=== PATIENT | female | born 1985 | race Caucasian/White ===

== ENCOUNTER 2022-06-27 09:05 | Emergency (ER) | payer BC, SELFPAY ==
--- NOTE | ~2022-06-27 | CT_ITS ---
EXAMINATION: CT abdomen pelvis w con DATE: 06/27/2022 10:18 INDICATION: Left upper quadrant and epigastric pain, tenderness, radiating to back TECHNIQUE: Computed tomography (CT) of the abdomen and pelvis was performed with 100 CC Omnipaque 350 intravenous contrast. Automated exposure control and iterative reconstruction technique were employe d. Exam dose: 378.40 mGy-cm total exam DLP. COMPARISON: 12/02/2016 CT abdomen pelvis FINDINGS: The lung bases are clear. Normal heart size. No pericardial or pleural effusion. No hepatic, splenic, pancreatic, and adrenal or renal space-occupying mass lesion is detected. The ga llbladder is present. No bile duct or pancreatic duct dilatation. There is an approximately 2.2 mm nonobstructing right renal calculus and suggestion of a subtle pinpo int adjacent nonobstructing right renal calculus. Pinpoint nonobstructing left renal calculus. No ureteral calculus or hydroureteronephrosis. The urina ry bladder is unremarkable. Status post hysterectomy. Up to approximately 1.7 cm left ovarian cyst is suggested. The right ovary appears to be absent. Normal caliber of the abdominal aorta. No intraperitoneal or retroperitoneal or pelvic mass lesion or adenopathy or ascites. Status post appendectomy. No bowel obstruction, bowel wall thickening, pneumatosis or intraperitoneal free air. Small fat-containing umbilical hernia. Included skeletal structures are unremarkable. IMPRESSION: Minimal bilateral nonobstructive nephrolithiasis No urinary tract calculus or hydroureteronephrosis Status post hysterectomy Status post appendectomy Approximately 1.7 cm left ovarian cyst is suggested Reviewed, dictated and finalized at [facility]. Reviewed, dictated and finalized at [facility]. ER PORTALS TEACHER
--- NOTE | 2022-06-27 09:19 | ED.ABDPAIN ---
HPI - Abdominal Pain General Chief Complaint: Abdominal Pain Stated Complaint: abd pain Time Seen by Provider: 06/27/22 09:12 History of Present Illness HPI narrative: Patient is a 37 year old female with a history of appendicitis s/p appendectomy here for evaluation of LUQ abdominal pain x 4 days. Patient states that the pain is intermittent in nature, worse after eating. Associated with nausea, vomiting, and diarrhea. States she has had 10 episodes of loose stools daily. Denies new or suspicious foods. No sick contacts. Saw her PCP who ordered labs which didn't reveal much per patient. Presented today due to decreased PO and feeling dehydrated. No fevers, chills, cough. Related Data Allergies Allergy/AdvReac Type Severity Reaction Status Date / Time amoxicillin Allergy Unknown Verified 10/27/17 15:26 cefaclor Allergy Unknown Verified 10/27/17 15:25 Penicillins Allergy Unknown Verified 10/27/17 15:25 Review of Systems Review of Systems: Gen.: Denies fevers or chills Eyes: Denies eye pain or visual change ENT: Denies congestion Respiratory: Denies shortness of breath or cough CV: Denies chest pain or palpitations GI: Reports abdominal pain nausea, emesis or diarrhea denies burning, urgency, frequency or hematuria Musculoskeletal: Denies back pain or muscle pain Neuro: Denies numbness, tingling, weakness or focal weakness Skin: Denies rash Except as documented, all other systems reviewed and negative [facility] Family History Family History (Updated 10/27/17 @ 16:51 by DOCTOR UNKNOWN) Father Depression Hypertension Cerebrovascular accident Family history of kidney disease Family history of type 2 diabetes mellitus Other Family history of malignant neoplasm of breast in first degree relative Social History Social History Smoking status: Never smoker Second hand tobacco smoke exposure: No Alcohol intake: current Exam Narrative: APPEARANCE: Well appearing, no pain in distress, well-nourished. Head: Normocephalic and atraumatic. EYES: PERRLA/EOMI, conjunctivae clear NOSE: No nasal drainage EARS: External ear normal in appearance THROAT: Oropharynx is clear. Mucous membranes are moist. NECK: Supple. No adenopathy, no masses. RESPIRATORY: Airway patent, respirations nonlabored. Clear to auscultation bilaterally, no rales, rhonchi, wheezing. CARDIOVASCULAR: Regular rate and rhythm without murmurs, rubs, or gallops. ABDOMINAL: Tender to palpation in left upper quadrant. normoactive bowel sounds. Soft, nontender, nondistended. No rebound tenderness or guarding. MUSCULOSKELETAL: Extremities are warm and well-perfused. Moves all extremities well. No edema. NEURO: Normal speech. No focal neurologic deficits. SKIN: Skin is warm and dry. No rashes. PSYCHIATRIC: Normal affect/mood. Course Vital Signs Vital signs: Vital Signs Temperature 97.7 F 06/27/22 09:21 Pulse Rate 97 06/27/22 09:21 Respiratory Rate 18 06/27/22 09:21 Blood Pressure 136/82 06/27/22 09:21 Pulse Oximetry 97 06/27/22 09:21 Oxygen Delivery Room Air 06/27/22 09:21 Temperature 97.7 F 06/27/22 09:21 Pulse Rate 69 06/27/22 11:52 Respiratory Rate 18 06/27/22 11:52 Blood Pressure 107/75 06/27/22 11:52 Pulse Oximetry 100 06/27/22 11:52 Oxygen Delivery Room Air 06/27/22 09:21 MDM - Abdominal Pain MDM Narrative Medical decision making narrative: 37-year-old female here for evaluation abdominal pain, diarrhea, vomiting over the past several days. Patient is nontoxic-appearing and has normal vital signs. She has some abdominal tenderness in the left upper quadrant but no rebound tenderness or guarding. Basic labs unremarkable, lipase is normal. Slightly hemoconcentrated with a RBC count of 15.4. EKG and troponin are nonischemic. CT abdomen pelvis without acute findings. She likely has gastroenteritis, she was given fluids, Pepcid, nausea medicine and Tylenol in the ED with improvement of her
[2022-06-27 09:21] VITALS: BP 136/82; PULSE 97; RESP 18; TEMP 36.5; O2SAT 97
[2022-06-27] MEDS: SODIUM CHLORIDE 0.9% IV 1,000 ML 999 ML IV CONT (09:36)
[2022-06-27] MEDS: ONDANSETRON INJ 4 MG/2 ML VIAL IV PUSH (09:37)
[2022-06-27] MEDS: FAMOTIDINE 20 MG/2 ML VIAL IV PUSH (09:37)
[2022-06-27 09:41] LABS: Basophils Percent Auto 0.3 % (0.2-1.2); Eosinophils Absolute Auto 0.1 K/mm3 (0-0.3); Eosinophils Percent Auto 0.9 % (0-4.4); Hematocrit 45.9 % (37.0-47.0); Hemoglobin 15.4 g/dL (12.0-15.0); Immature Granulocyte Absolute 0.01 K/mm3 (0.00-0.031); Immature Granulocyte Percent A 0.1 % (0-0.5); Lymphocytes Absolute Auto 1.37 K/mm3 (0.9-3.2); Lymphocytes Percent Auto 19.9 % (18.3-44.2); Mean Corpuscular HGB Conc 33.6 g/dl (32-36); Mean Corpuscular Hemoglobin 28.9 pg (26-34); Mean Corpuscular Volume 86.1 fl (80-100); Mean Platelet Volume 10.6 fl (7.4-10.4); Monocytes Absolute Auto 0.3 K/mm3 (0.1-0.6); Monocytes Percent Auto 4.9 % (2.6-8.5); Neutrophils Absolute Auto 5.1 K/mm3 (1.3-6.7); Neutrophils Percent Auto 73.9 % (45.5-73.1); Platelet Count Result 228 k/mm3 (150-375); Red Blood Count 5.33 M/mm3 (4.2-5.4); Red Cell Distribution Width 12.1 % (11.5-14.5); White Blood Count 6.9 K/mm3 (4.5-10.0)
[2022-06-27 09:42] LABS: Appearance Urine Clear (Clear); Bilirubin Urine Negative (Negative); Blood Urine Negative (Negative); Color Urine Yellow (Yellow); Glucose Urine UA Negative (Negative); Ketones Urine Negative (Negative); Leukocyte Esterase Ur Negative LEU/UL (Negative); Nitrate Urine Negative (Negative); Protein Urine Negative (Negative); Urobilinogen Urine 0.2 mg/dL (<2.0)
[2022-06-27 10:06] LABS: Alanine Aminotransferase 29 U/L (6-35); Albumin Level 4.4 g/dL (3.5-5.1); Alkaline Phosphatase 61 U/L (38-126); Anion Gap 6 mmol/L (8-16); Aspartate Amino Transferase 29 U/L (14-36); Bilirubin,Total 0.6 mg/dL (0.2-1.3); Blood Urea Nitrogen 12 mg/dL (7-17); Calcium 8.7 mg/dL (8.4-10.2); Carbon Dioxide 28 mmol/L (22-30); Chloride 104 mmol/L (98-107); Estimated Glomerular Filt Rate > 60; Glucose 94 mg/dL (65-110); Lipase 206 U/L (23-300); Potassium 3.7 mmol/L (3.4-5.0); Sodium 138 mmol/L (137-145)
--- NOTE | 2022-06-27 10:34 | ECG_ITS ---
Measurements Intervals [place] Rate: 69 P: 31 CO: 145 QRS: 35 QRSD: 103 T: 44 QT: 398 QTc: 427 Interpretive Statements SINUS RHYTHM NORMAL ECG NO PREVIOUS ECG AVAILABLE FOR COMPARISON Electronically Signed On 06-27-2022 11:34:26 TOW MOTOR MECHANIC by Kirt Marquez D.O.
[2022-06-27 10:48] LABS: Add Urine Microscopic? NO
[2022-06-27 11:03] LABS: Troponin I < 0.012 ng/mL (0.000-0.034)
[2022-06-27 11:52] VITALS: BP 107/75; PULSE 69; RESP 18; O2SAT 100
== END 2022-06-27 11:52 | disposition home or self-care (01) ==
PROVIDERS: Emergency Provider Physician Assistant; PCP Nurse Practitioner Family
DX: K52.9 Noninfective gastroenteritis and colitis, unspecified (principal); Z90.710 Acquired absence of both cervix and uterus
CPT/HCPCS: 36415; 74177; 80053; 81003; 83690; 84484; 85025; 93005; 96361; 96365; 96375; 99284; J0131; J2405; J7030; Q9967

== ENCOUNTER 2024-01-18 09:50 | Emergency (ER) | payer BC, SELFPAY ==
--- NOTE | 2024-01-18 09:52 | ED.EYEPROB ---
HPI - Eye Problem General Chief complaint: Eye Problems Stated complaint: RT Redness eye Time Seen by Provider: 01/18/24 10:07 Source: patient, RN notes reviewed and old records reviewed Mode of arrival: ambulatory Limitations: no limitations History of Present Illness HPI Narrative: 38-year-old female presents to the [facility] with complaints right eye redness, irritation, crusting. Denies any pain. Normally wears contacts currently wearing eyeglasses. States symptoms started on Friday and last night became worse. Has had some increased tearing. Denies any trauma. Related Data Allergies Allergy/AdvReac Type Severity Reaction Status Date / Time amoxicillin Allergy Unknown Verified 10/27/17 15:26 cefaclor Allergy Unknown Verified 10/27/17 15:25 Penicillins Allergy Unknown Verified 10/27/17 15:25 Review of Systems Review of Systems: All systems reviewed & are unremarkable except as noted in HPI and below Constitutional: Constitutional: Reports no additional constitutional complaints Eyes: Eyes: Reports as per HPI, Denies change in vision, Reports eye discharge and Reports irritation ENT: Reports system reviewed and no additional complaints, except as documented Cardiovascular: Cardiovascular: Reports no additional cardiovascular complaints, Denies chest pain and Denies dyspnea Respiratory: Respiratory: Reports no additional respiratory complaints, Denies chest congestion, Denies cough and Denies dyspnea Gastrointestinal: Gastrointestinal: Reports no additional gastrointestinal complaints, Denies abdominal pain, Denies nausea and Denies vomiting Musculoskeletal: Musculoskeletal: Reports no additional musculoskeletal complaints Integumentary/Breasts: Skin/Breast: Reports system reviewed and no additional complaints, except as docu Neurologic: Reports system reviewed and no additional complaints, except as documented Psychiatric: Psychiatric: Reports no additional psychiatric complaints Allergic/Immunologic: Allergic/Immunologic: Reports no additional allergic/immunologic complaints [facility] Family History Family History Father Depression Hypertension Cerebrovascular accident Family history of kidney disease Family history of type 2 diabetes mellitus Other Family history of malignant neoplasm of breast in first degree relative Social History Social History Smoking status: Never smoker Second hand tobacco smoke exposure: No Alcohol intake: current Comments At the time of my signature, I reviewed and agree with the nursing past medical, surgical, social, and family history. There is no relevant family history pertinent to the patient complaint. Exam Const: General: cooperative, healthy appearing, comfortable, no acute distress, well developed, alert and well nourished Nutritional Appearance: well nourished Orientation/consciousness: patient oriented x3 Limitations: no limitations HENMT: Head: normal to inspection Ears: hearing grossly normal bilaterally and external ears normal Face/Nose/Sinus: Normal external nose present, Normal nares present, Normal nasal mucous membranes and turbinates present, normal facial exam and face symmetric Face and sinus: normal facial exam and face symmetric Mouth: Yes Normal oral and palatal mucosa present and Yes tongue normal Eyes: General: appearance normal, both eyes and all related structures Alignment and Position: alignment normal Periorbital: periorbital findings normal Conjunctivae: conjunctival abnormality right conjunctival injection localized and discharge other (Clear) Sclera: sclerae normal Pupils: Equal, round and reactive pupils present EOM: EOMs intact bilaterally Neck: Neck: normal visual inspection, full ROM, no lymphadenopathy and no meningeal signs Chest: Chest palpation & inspection: normal inspection of the chest Resp: Effort & I
[2024-01-18 10:04] VITALS: BP 118/80; PULSE 77; RESP 16; TEMP 36.4; O2SAT 100
== END 2024-01-18 10:21 | disposition home or self-care (01) ==
PROVIDERS: Emergency Provider Nurse Practitioner
DX: H10.31 Unspecified acute conjunctivitis, right eye (principal); Z86.16 Personal history of COVID-19
CPT/HCPCS: 99213; G0463

== ENCOUNTER 2024-02-05 11:31 | Emergency (ER) | payer BC, SELFPAY ==
[2024-02-05 12:07] VITALS: BP 109/73; PULSE 65; RESP 16; TEMP 36.3; O2SAT 97
--- NOTE | 2024-02-05 12:07 | ED.URI ---
HPI - URI/Sore Throat General Chief Complaint: Upper Respiratory Infection Stated Complaint: SINUS CONGESTION Time Seen by Provider: 02/05/24 12:07 Source: patient Mode of arrival: ambulatory Limitations: no limitations History of Present Illness HPI Narrative: 38-year-old female presents with complaint of sinus congestion, sinus pressure nasal congestion for approximately 7 weeks. Patient has been treating with [id number] medications with no relief of symptoms. Sinus pressure worse to right side with also right ear pain. Afebrile. All systems reviewed and negative except as noted above. Related Data Allergies Allergy/AdvReac Type Severity Reaction Status Date / Time amoxicillin Allergy Unknown Unknown Verified 01/18/24 19:13 cefaclor Allergy Unknown Unknown Verified 01/18/24 19:13 Penicillins Allergy Unknown Unknown Verified 01/18/24 19:13 Review of Systems Review of Systems: CONSTITUTIONAL: Denies fever, chills, or sweats. EYES: Denies visual changes, redness, or discharge. ENT: Reports rhinorrhea, congestion, sinus pressure, right ear pain. Denies sore throat CARDIOVASCULAR: Denies chest pain, palpitations, or edema. RESPIRATORY: Denies cough or dyspnea. GASTROINTESTINAL: Denies abdominal pain, nausea, vomiting, or diarrhea. GENITOURINARY: Denies dysuria or hematuria. SKIN: Denies rash or itching. MUSCULOSKELETAL: Denies back pain, joint pain, or myalgia. NEUROLOGIC: Denies headache, numbness, or weakness. PSYCHIATRIC: Denies anxiety or depression. All other systems reviewed are negative, except as documented in HPI. [facility], [facility] Family History Family History Father Depression Hypertension Cerebrovascular accident Family history of kidney disease Family history of type 2 diabetes mellitus Other Family history of malignant neoplasm of breast in first degree relative Social History Social History Smoking status: Never smoker Second hand tobacco smoke exposure: No Alcohol intake: current Comments At time of signature, agree with nursing past medical, surgical, social and family history. There is no relevant family history pertinent to the presenting complaint. Exam Narrative: GENERAL: This is a well-nourished, well-developed patient, in no apparent distress. HEAD: normocephalic, atraumatic. EYES: PERRL. Sclera clear/white. Vision is grossly intact. EARS: External ears normal, auditory canals clear and without drainage, fluid to right TM without erythema. Normal left TM. Without perforation. Hearing grossly intact. NOSE: External nose normal, moderate congestion, erythema swelling to bilateral nares, maxillary sinus tenderness on the right. THROAT: Mucous membranes moist, posterior pharynx clear. NECK: Neck supple, non-tender without lymphadenopathy, masses or thyromegaly. CARDIOVASCULAR: Regular rate and rhythm without murmurs, gallops, or rubs. RESPIRATORY: Clear to auscultation. Breath sounds equal bilaterally. No wheezes, rales, or rhonchi. SKIN: warm, Dry, intact with no suspicious lesions or rash, good texture and turgor. NEURO: awake, alert, and oriented to person, place and time. There were no obvious focal neurologic abnormalities. EXTREMITIES: No joint tenderness, effusion, or edema noted. Course Course Level of Care: Express Care Visit Vital Signs Vital signs: Vital Signs Temperature 36.3 C L 02/05/24 12:07 Pulse Rate 65 02/05/24 12:07 Respiratory Rate 16 02/05/24 12:07 Blood Pressure 109/73 02/05/24 12:07 Pulse Oximetry 97 02/05/24 12:07 Temperature 36.3 C L 02/05/24 12:07 Pulse Rate 65 02/05/24 12:07 Respiratory Rate 16 02/05/24 12:07 Blood Pressure 109/73 02/05/24 12:07 Pulse Oximetry 97 02/05/24 12:07 Reviewed MDM - URI/Sore Throat MDM Narrative Medical decision making narrative: Patient is aware of diagnosis, unde
== END 2024-02-05 12:22 | disposition home or self-care (01) ==
PROVIDERS: Emergency Provider Nurse Practitioner Family
DX: J01.90 Acute sinusitis, unspecified (principal); Z86.16 Personal history of COVID-19
CPT/HCPCS: 99213; G0463

== ENCOUNTER 2024-07-08 14:49 | Emergency (ER) | payer BC, SELFPAY ==
--- NOTE | ~2024-07-08 | CT_ITS ---
EXAMINATION: CT brain wo con DATE: 07/08/2024 16:19 INDICATION: Headache. Weakness. TECHNIQUE: Computed tomography (CT) of the head was performed without intravenous contrast. The mA wa s adjusted according to patient size. Iterative reconstruction technique was employed. The dose-lengt h product was 605.33 mGy-cm. COMPARISON: Head CT 09/15/2018 FINDINGS: There is no intracranial hemorrhage, acute infarction, or abnormal intracranial mass lesion . The ventricles are normal in size. There is mild mucosal thickening in the paranasal sinuses. The m astoid air cells are normal. The orbits are normal. IMPRESSION: 1. Normal brain. Reviewed, dictated and finalized at location A. TRIMMER IMPRESSION: 1. Normal brain.
--- NOTE | ~2024-07-08 | XR_ITS ---
EXAMINATION: XR chest 1V DATE: 07/08/2024 16:21 INDICATION: Weakness. TECHNIQUE: A single frontal view of the chest was obtained. COMPARISON: CT abdomen and pelvis 06/27/2022 FINDINGS: There is no pneumonia, pleural effusion, or pneumothorax. The heart size is normal. IMPRESSION: 1. No acute cardiopulmonary disease. Reviewed, dictated and finalized at location A. METER MECHANIC
[2024-07-08 15:03] VITALS: BP 134/74; PULSE 104; RESP 16; TEMP 36.4; O2SAT 100
--- OUTSIDE RECORDS SUMMARY | 2024-07-08 15:25 | XMS_ITS | Clinical Summary ---
Author Organization [facility] Address [address] [place] [id number] Care Team Providers Care Radiology Physician Name Role Phone No, Physician Primary Care Provider [phone] Allergies Active Allergy Reactions Criticality Noted Date Comments Amoxicillin Hives High Reaction: Hives, Cefaclor Hives High Reaction: Hives, Penicillins Hives High Reaction: Hives, Medications ibuprofen (ibuprofen) 200 mg tab/cap Take by mouth every 6 (six) hours as needed for pain Active fluticasone propionate (FLONASE) 50 mcg/actuation nasal spray Administer 2 sprays into each nostril daily as needed for rhinitis 9 Active docusate sodium (COLACE) 100 mg capsuleIndicati ons:constipatio n Take 1 capsule (100 mg total) by mouth 2 (two) times a day as needed for constipation (while taking narcotics) 30 capsule 1 9 Active oxyCODONE (ROXICODONE) 5 mg immediate release tabletIndicatio ns:Pain 1-2 tablets q4-6 hours PRN pain 40 tablet [address] (CYMBALTA) 30 mg capsule TAKE ONE CAPSULE BY MOUTH DAILY 30 capsule [address] (CYMBALTA) 20 mg capsule Take 1 po daily for 1 week then 1 every other day for one week then off 11 capsule 0 Active Active Problems Problem Noted Date Diagnosed Date Instability of left shoulder joint 05/25/2019 Overview (05/25/2019): Added automatically from request for surgery [id number] Ulnar neuropathy of left upper extremity 019 Overview (10/17/2018): Added automatically from request for surgery [id number] Ulnar nerve entrapment 01/03/2015 Hypotension 01/02/2015 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 Pain in shoulder 01/02/2015 Surgical History Surgery Date Site/Laterality Comments UT APPENDECTOMY Appendectomy - (Added by TW Conv) SINUS SURGERY Sinus Surgery - (Added by TW Conv) UT DELIVERY ONLY Section - (Added by TW Conv) UT LIG/TRNSXJ FLP TUBE ABDL/VAG APPR UNI/BI Tubal Ligation - (Added by TW Conv) UT TONSILLECTOMY PRIMARY/SECONDARY <AGE 12 Tonsillectomy - (Added by TW Conv) ARM SURGERY 06/09/1989 - 06/08/1990 r/t fracture HYSTERECTOMY 06/09/2010 - 06/08/2011 FLUORO GUIDED INJECTION SHOULDER LEFT 04/26/2019 Left SHOULDER ARTHROSCOPY Left For labral tear ULNAR NERVE REPAIR Left OTHER SURGICAL HISTORY Guyon Canal release FLUORO GUIDED INJECTION SHOULDER LEFT 02/08/2021 Left Medical History Medical History Date Comments Personal history of other di seases of the circulatory system History of hypotension - (Ad ded by TW Conv) Personal history of other di seases of the female genital tract History of ovarian cyst - (A dded by TW Conv) Fatigue Ear pain, left Drainage from nose Jaw pain Arthritis Neck pain Family History Medical History Relation Name Comments Diabetes type I Father Family histo ry of type 1 diabetes mellitus - (Added by TW Conv) Heart attack Father Heart disease Father Family history of cardiac disorder - (Added by TW Conv) Stroke Father No Known Problems Mother Breast cancer Other grandmother Anesthesia problems Neg Hx Relation Name Status Comments Father Mother Other grandmother Social History Tobacco Use Types Packs/Day Years Used Date Smoking Tobacco: Never Smokeless Tobacco: Never Alcohol Use Standard Drinks/Week Comments Yes 0 (1 standard drink = 0.6 oz pur e alcohol) 1 drink monthly maybe AUDIT-C Answer Date Recorded Frequency of Alcohol Consumption Monthly or less 05/25/2019 Average Number of Drinks Not on file 019 Frequency of Binge Drinking Not on file 05/09 Comments No Sex and Gender Information Value Date Recorded Sex Assigned at Not on file Legal Sex 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 Gender Identity Not on file Sexual Orientation Straight 09/21/2019 3: 08 PM CDT Obstetrics History Last Filed Vital Signs Vital Sign Reading Time Taken Comments Blood Pressure 129/74 02/08/2021 3:44 PM CDT Pulse 71 02/08/2021 3:44 PM CDT Temperature 37.1 ??C (98.8 ??F) 06/07/2019 2:07 PM CS T Respiratory Rate 20 02/08/2021 3:44 PM CDT Oxygen Saturation 99% 06/07/2019 2:55 PM DEMOLITION ENGINEER Inhaled Oxygen Concentration - - Weight 70.3 kg (155 lb) 06/07/2019 9:41 AM DEMOLITION ENGINEER Height 177.8 cm (5' 10 ) 06/07/2019 9:41 AM DEMOLITION ENGINEER Body Mass Index 22.24 06/07/2019 9:41 AM DEMOLITION ENGINEER Plan of Treatment Not on file Goals Goal Patient Goal Type Associated Problems Recent Progress Patient-Stated? Author CCM Chronic Pain Care Plan Chronic Care Management No Eveline Quinn, RN Note: Problem: Chronic Pain Goals: 1. Minimize further functional decline 2. Maximize quality of life 3. Control pain Strategies: - Activity/exercise program recommendation - Conservative stepwise pain medicine strategy with multi-disciplinary approach - Recommend healthy lifestyle strategies and compensatory methods as needed Medical Devices Implanted Type Area General Merchandise Salesperson Device Identifier Shelf Expiration Date Model / Serial / Lot [employer] Ar-1938bc Suturetak Fiberwire Arthrex 3mm 12.7mm Knotless Cruciate Ligament - Sn/A - [id number] Implanted:Qt y: 1 on 06/07/2019 by Cayden Sousa MD at [facility] Other - see comments Left: Shoulder [employer] [id number] 04/08/2021 LOLITA-1938B C / N/A / [id number] Description:[place] [employer] Ar-1938bc Suturetak Fiberwire Arthrex 3mm 12.7mm Knotless Cruciate Ligament - Sn/A - [id number] Implanted:Qt y: 1 on 06/07/2019 by Cayden Sousa MD at [facility] Other - see comments Left: Shoulder [employer] [id number] 11/06/2020 AR-8B C / N/A / [id number] Description:Brought in [place] the [place] [employer] Ar-1938bc Suturetak Fiberwire Arthrex 3mm 12.7mm Knotless Cruciate Ligament - Sn/A - [id number] Implanted:Qt y: 1 on 06/07/2019 by Cayden Sousa MD at [facility] Other - see comments Left: Shoulder [employer] [id number] 04/08/2021 AR-1938B C / N/A / [id number] Description:[place]ought in [place] the [place] Scre[employer] Screw Left: Shoulder Insurance [employer] [place] [employer] [place] [employer] [facility] Care Teams Radiology Physician Relationship Specialty Start Date End Date No, Physician PCP - General 09/12/18
--- OUTSIDE RECORDS SUMMARY | 2024-07-08 15:25 | XMS_ITS | Referral Summary ---
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 Pain in shoulder 01/02/2015 Social History Tobacco Use Types Packs/Day Years [...] on file 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 Gender Identity Not on file Sexual Orientation Straight 09/21/2019 3: 08 PM CDT Last Filed Vital Signs Vital Sign Reading Time Taken Comments Blood Pressure 129/74 02/08/2021 3:44 PM CDT Pulse 71 02/08/2021 3:44 PM CDT Temperature 37.1 ??C (98.8 ??F) 06/07/2019 2:07 PM CS T Respiratory Rate 20 02/08/2021 3:44 PM CDT Oxygen Saturation 99% 06/07/2019 2:55 PM CREW TRUCK DRIVER Inhaled Oxygen Concentration - - Weight 70.3 kg (155 lb) 06/07/2019 9:41 AM CREW TRUCK DRIVER Height 177.8 cm (5' 10 ) 06/07/2019 9:41 AM CREW TRUCK DRIVER Body Mass Index 22.24 06/07/2019 9:41 AM CREW TRUCK DRIVER Plan of Treatment Not on file Goals [...] as needed Medical Devices Implanted Type Area Ballroom Dance Instructor Device Identifier Shelf Expiration Date Model / Serial / Lot [employer] Ar-1938bc Suturetak Fiberwire Arthrex 3mm 12.7mm Knotless Cruciate Ligament - Sn/A - [id number] Implanted:Qt y: 1 on 06/07/2019 by Cayden Sousa MD at [facility] Other - see comments Left: Shoulder [employer] [id number] 04/08/2021 AR-1938B C / N/A / [id number] Description:[place]ought in [place] [employer] Ar-1938bc Suturetak Fiberwire Arthrex 3mm 12.7mm Knotless Cruciate Ligament - Sn/A - [id number] Implanted:Qt y: 1 on 06/07/2019 by Cayden Sousa MD at [facility] Other - see comments Left: Shoulder [employer] [id number] 11/06/2020 AR-1938B C / N/A / [id number] Description:Brought in [place] [employer] Ar-1938bc Suturetak Fiberwire Arthrex 3mm 12.7mm Knotless Cruciate Ligament - Sn/A - [id number] Implanted:Qt y: 1 on 06/07/2019 by Cayden Sousa MD at [facility] Other - see comments Left: Shoulder [employer] [id number] 04/08/2021 AR-1938B C / N/A / [id number] Description:[place]ought in [place] Screw Screw Left: Shoulder Insurance [facility] [employer] [place] [employer] [place] Care Teams Extracorporeal Circulation Specialist Relationship Specialty Start Date End Date No, Physician PCP - General 09/12/18
--- OUTSIDE RECORDS SUMMARY | 2024-07-08 15:25 | XMS_ITS | Encounter Summary ---
Author Organization [facility] Address [facility] [place] [place] [address] [place] [address] Care Team Providers Care Sea Shell Gatherer Name Role Phone Adelfo Bailee [facility] Primary Care Provider + Encounter Details Date Type Department Care Team (Late st Contact Info) Description 07/01/2022 [employer] Groupt Message Enc [facility] Medical Group Family & Internal Medicine [facility] [address] [place] [address] [place] [address] [facility] [address] [address] Dicyclomine Update Social History Tobacco Use Types Packs/Day Years Used Date Smoking Tobacco: Never Passive Smoke Exposure: Never Smokeless Tobacco: Never Alcohol Use Standard Drinks/Week Comments Never 0 (1 standard drink = 0.6 oz pur e alcohol) PHQ-2 Answer Date Recorded Patient Health Questionnaire-2 Score 2 05/20/2022 Comments No Sex and Gender Information Value Date Recorded Sex Assigned at Not on file Legal Sex Female 11:34 AM CDT Gender Identity Not on file Sexual Orientation Not on file COVID-19 Exposure Response Date Recorded In the last 10 days, have yo u been in contact with someone who was confirmed or suspected to have Coronavirus/COVID-19? No / Unsure 06/25/2022 3:47 PM AVIONICS SYSTEMS ENGINEER documented as of this encounter Plan of Treatment Not on file documented as of this encounter Visit Diagnoses Not on filedocumented in this encounter Additional Health Concerns Assessment Noted Time PHQ-9 Depression Total Score: 11 022 11:03 AM AVIONICS SYSTEMS ENGINEER documented as of this encounter Care Teams Sea Shell Gatherer Relationship Specialty Start Date End Date Bailee Emanuel FNP- PCP - General Nurse Practitioner Family 05/16/2207/11 documented as of this encounter
--- OUTSIDE RECORDS SUMMARY | 2024-07-08 15:25 | XMS_ITS | Encounter Summary ---
Author Organization [facility] Address [facility] [place] [address] [place] [address] Care Team Providers Care Cushion Former Name Role Phone Bailee Emanuel [facility] Primary Care Provider + Encounter Details Date Type Department Care Team (Late st Contact Info) Description 07/29/2022 Guavust Message Enc [facility] Medical Group Family & Internal Medicine [address] [address] Bailee Emanuel [facility] [address] [place] [address] C. Diff Test Social History Tobacco Use Types Packs/Day Years Used Date Smoking Tobacco: Never Passive Smoke Exposure: Never Smokeless Tobacco: Never Alcohol Use Standard Drinks/Week Comments Never 0 (1 standard drink = 0.6 oz pur e alcohol) PHQ-2 Answer Date Recorded Patient Health Questionnaire-2 Score 0 07/25/2022 Comments No Sex and Gender Information Value Date Recorded Sex Assigned at Not on file Legal Sex Female 11:34 AM CDT Gender Identity Not on file Sexual Orientation Not on file COVID-19 Exposure Response Date Recorded In the last 10 days, have yo u been in contact with someone who was confirmed or suspected to have Coronavirus/COVID-19? No / Unsure 07/25/2022 1:29 PM HOOP BENDER TANK documented as of this encounter Progress Notes * Lola Viramontes RN - 07/30/2022 8:26 AM CST Noted. BENDER TANK documented in this encounter Plan of Treatment Not on file documented as of this encounter Visit Diagnoses Not on filedocumented in this encounter Additional Health Concerns Assessment Noted Time PHQ-9 Depression Total Score: 3 07/25/19 23 2:07 PM HOOP BENDER TANK documented as of this encounter Care Teams Cushion Former Relationship Specialty Start Date End Date Bailee Emanuel FNP- PCP - General Nurse Practitioner Family 05/16/2207/11 documented as of this encounter
--- OUTSIDE RECORDS SUMMARY | 2024-07-08 15:25 | XMS_ITS | Encounter Summary ---
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
--- OUTSIDE RECORDS SUMMARY | 2024-07-08 15:25 | XMS_ITS | Clinical Summary ---
Author Organization [facility] Address [facility] [place] [address] [place] [address] Care Team Providers Care Customs Import Specialist Name Role Phone Unavailable Primary Care Provider Unavailabl e Allergies Active Allergy Reactions Criticality Noted Date Comments Amoxicillin Hives 04/03/2020 Cefaclor Hives High 04/18/2022 Reaction: Hives, Penicillins Hives 04/03/2020 Seasonal Other (see comment) Low 09/25/2022 Itchy eyes, runny nose Medications Ergocalciferol (VITAMIN D OR) Activ e Multiple Vitamin (MULTIVITAMIN ADULT OR) Active ibuprofen (MOTRIN) 200 MG tablet Active pantoprazole EC (PROTONIX) 40 MG tabletIndication s:Acute gastritis without hemorrhage, unspecified gastritis type Take 1 tablet (40 mg total) by mouth daily. 90 tablet 1 12/23/2022 Active butalbital-aceta minophen-caffein e-codeine (FIORICET WITH CODEINE) 28-210-48-30 MG capsuleIndicatio ns:Acute Pain < 7 Day Supply Take 1 capsule by mouth every 4 (four) hours as needed for Headaches. Indications: Acute Pain < 7 Day Supply 30 capsule 12/23/2022 Active Active Problems Problem Noted Date Diagnosed Date Chronic diarrhea 08/13/2022 Overview (08/13/2022): Added automatically from request for surgery [id number] Oropharyngeal dysphagia 08/13/2022 Overview (08/13/2022): Added automatically from request for surgery [id number] Instability of left shoulder joint 05/25/2019 Overview (05/20/2022): Added automatically from request for surgery [id number] Ulnar neuropathy of left upper extremity 019 Overview (05/20/2022): Added automatically from request for surgery [id number] Ulnar nerve entrapment 01/03/2015 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 Pain in shoulder 01/02/2015 Resolved Problems Problem Noted Date Diagnosed Date Resolved Date Hypotension 01/02/2015 01/14/2023 Immunizations Name Administration Dates Next Due Fluzone 6 Months+ Quad (0.5 mL Prefilled Syringe ) 05/20/2022 Family History Medical History Relation Comments Deep vein thrombosis Father Diabetes Father type 1 Hypertension Father Kidney failure Father Stroke Father Cancer Paternal Grandmother breast Relation Status Comments Father Paternal Grandmother Social History Tobacco Use Types Packs/Day Years Used Date Smoking Tobacco: Never Passive Smoke Exposure: Never Smokeless Tobacco: Never Tobacco Cessation:Counseling Given: No Alcohol Use Standard Drinks/Week Comments Yes 0 (1 standard drink = 0.6 oz pur e alcohol) rarely PHQ-2 Answer Date Recorded Patient Health Questionnaire-2 Score 0 08/09/2022 Comments No Sex and Gender Information Value Date Recorded Sex Assigned at Not on file Legal Sex Female 11:34 AM CDT Gender Identity Not on file Sexual Orientation Not on file Last Filed Vital Signs Vital Sign Reading Time Taken Comments Blood Pressure 122/82 12/23/2022 12:59 PM CDT Pulse 78 12/23/2022 12:59 PM CDT Temperature 37.2 ??C (98.9 ??F) 12/23/2022 12:59 PM C DT Respiratory Rate 16 12/23/2022 12:59 PM CDT Oxygen Saturation 100% 12/23/2022 12:59 PM CDT Inhaled Oxygen Concentration - - Weight 79.4 kg (175 lb) 12/23/2022 12:59 PM CDT Height 177.8 cm (5' 10 ) 12/23/2022 12:59 PM CDT Body Mass Index 25.11 12/23/2022 12:59 PM CDT Plan of Treatment Health Maintenance Due Date Last Done Comments Hepatitis C 02/19/2002 DTaP, Tdap and Td Vaccines ( 1 - Tdap) 02/19/2003 Hepatitis B Vaccines (1 of 3 - 19+ 3-dose series) 02/19/2003 Annual Physical 05/20/2023 05/20/2022 PHQ-2 (Physician [place]) 08/10/2023 08/09/2022 COVID-19 Vaccine (3 - 2023-2 5 season) 2024 02/22/2021, 01/18/2021 Mammogram Screening 2024 Influenza Adult (#1) 2024 05/20/2022 PHQ-2 (Physician [place]) 06/09/2024 08/09/2022 HPV Vaccines Aged Out No longer eligi ble based on patient's age to complete this topic Meningococcal B Vaccine Aged Out No l onger eligible based on patient's age to complete this topic Meningococcal Vaccine Aged Out No laz aaron eligible based on patient's age to complete this topic Pneumococcal Vaccine: Pediatrics (0 to 5 Years) and At-Risk Patients (6 to 64 Years) Aged Out No longer eligible b ased on patient's age to complete this topic RSV Immunizations Under 20 Months Aged Out No longer eligible b ased on patient's age to complete this topic Insurance [facility]
--- NOTE | 2024-07-08 15:55 | ED_ITS ---
HPI - Neuro Symptoms/Deficit General Chief Complaint: Neuro Symptoms/Deficit <Emerita Broussard PA-C - Last Filed: 07/09/24 17:33> Stated Complaint: suspected TIA <DELIA Mckeon Last Filed: 07/09/24 17:33> Time Seen by Provider: 07/08/24 15:55 <Emerita Broussard PA-C - Last Filed: 07/09/24 17:33> Focused HPI: This is a 39 year old female that presents to the ER for neurologic symptoms. She remembers walking into the vet. Then she remembers sitting down and trying to talk to the clip riveter. She started to feel very confused. Reports her left side went numb for what felt like a long time. She then developed a headache. She does have history of migraines. Does usually get auras, but does not have numbness/weakness typically. No current weakness/numbness, this has resolved. GENERAL: Well-appearing, well-nourished, and in no acute distress. HEAD: Normocephalic, atraumatic. CHEST: Clear to auscultation. ?No respiratory distress. HEART: Regular rate and rhythm.? NEURO: ?Alert and oriented x3. Normal gait Patient screened in triage and initial orders placed.? ?Additional care and disposition to be based upon?diagnostic testing and treatment. <Emerita Broussard PA-C - Last Filed: 07/09/24 17:33> Source: patient <DELIA Monaco Last Filed: 07/09/24 02:28> Mode of arrival: ambulatory <DELIA Monaco Last Filed: 07/09/24 02:28> Limitations: no limitations <DELIA Monaco Last Filed: 07/09/24 02:28> History of Present Illness HPI Narrative: Agree with triage note above. Patient states that she is currently asymptomatic. She is feeling much better compared to earlier. She does add that her symptoms are associated with a left-sided posterior headache/left-sided muscle pain in the traps region. States that she has had migraines in the past but was unsure if this was a migraine today. Patient is also stating that she had numbness to both the right hand and left upper extremity and left face. < Tima Harris PA-C - Last Filed: 07/09/24 02:28> Related Data Allergies/Adverse Reactions: Allergies Allergy/AdvReac Type Severity Reaction Status Date / Time amoxicillin Allergy Unknown Unknown Verified 07/08/24 14:51 cefaclor Allergy Unknown Unknown Verified 07/08/24 14:51 Penicillins Allergy Unknown Unknown Verified 07/08/24 14:51 <Emerita Broussard PA-C - Last Filed: 07/09/24 17:33> Review of Systems 2 Review of Systems: All systems as dictated in HPI <DELIA Monaco Last Filed: 07/09/24 02:28> PMFSH Family History Family History: Family History Father Depression Hypertension Cerebrovascular accident Family history of kidney disease Family history of type 2 diabetes mellitus Other Family history of malignant neoplasm of breast in first degree relative <Emerita Broussard PA-C - Last Filed: 07/09/24 17:33> Social History Social History: Social History Smoking status: Never smoker Second hand tobacco smoke exposure: No Alcohol intake: current <DELIA Mckeon Last Filed: 07/09/24 17:33> Exam 2 Narrative: GENERAL: Well-appearing, well-nourished, and in no acute distress. HEAD: Normocephalic, atraumatic. EYES: PERRLA and EOMI. ENT: Nares clear, no rhinorrhea or epistaxis. Mucous membranes moist. Oropharynx without tonsillar hypertrophy exudate or other lesions. NECK: Supple. No adenopathy or masses. CHEST: No respiratory distress. Clear to auscultation. No wheezes rales or rhonchi HEART: Regular rate and rhythm. No murmur heard. Normal peripheral pulses. ABDOMEN: Soft, nontender, nondistended, normal active bowel sounds. MSK: Normal range of motion. No edema. SKIN: Warm, dry, no rash. NEURO: Alert and oriented x4. No focal deficits. Cranial nerves 2-12 intact. 5/5 strength and sensation in the upper and lower extremities. No dysarthria. No nystagmus. Normal [id number]. Normal [id number]. No pronator drift bilaterally. PSYCH: Normal mood and affect. <Tima Harris PA-C - Last Filed: 07/09/24 02:28> Course Vital Signs Vital signs: Vital Signs Temperature 97.6 F 07/08/24 15:03 Pulse Rate 104 H 07/08/24 15:03 Respiratory Rate 16 07/08/24 15:03 Blood Pressure 134/74 07/08/24 15:03 Pulse Oximetry 100 07/08/24 15:03 Temperature 97.6 F 07/08/24 15:03 Pulse Rate 74 07/08/24 22:32 Respiratory Rate 17 07/08/24 22:32 Blood Pressure 106/66 07/08/24 22:32 Pulse Oximetry 99 07/08/24 22:32 <Emerita Broussard PA-C - Last Filed: 07/09/24 17:33> Vital Signs Temperature 97.6 F 07/08/24 15:03 Pulse Rate 104 H 07/08/24 15:03 Respiratory Rate 16 07/08/24 15:03 Blood Pressure 134/74 07/08/24 15:03 Pulse Oximetry 100 07/08/24 15:03 Temperature 97.6 F 07/08/24 15:03 Pulse Rate 74 07/08/24 22:32 Respiratory Rate 17 07/08/24 22:32 Blood Pressure 106/66 07/08/24 22:32 Pulse Oximetry 99 07/08/24 22:32 <Tima Harris PA-C - Last Filed: 07/09/24 02:28> MDM - Neuro Symptoms/Deficit MDM Narrative Medical decision making narrative: This is a 39-year-old female who presents to the ED for chief complaint of headache with numbness to the extremities and face. Vitals are normal. Exam is benign. No neurologic deficits on exam Lab work is grossly unremarkable. EKG shows sinus rhythm with no acute ischemia. CT brain without contrast shows no acute findings. Offered further workup with CTA to evaluate the headache and possible neurologic symptoms, however patient is declining. She is feeling completely asymptomatic on my arrival and would like to go home. I did explain that I cannot fully rule out any damage without an MRI in the hospital, however she is understanding of this and still elects to leave. I do feel this is reasonable as her symptoms are not representing a stroke or TIA with bilateral extremity numbness. More likely related to a migraine. She feels improved after Toradol and Benadryl. Patient will be discharged in stable condition. Supportive measures discussed and return precautions given. Patient is understanding and agreeable with plan for discharge with PCP follow-up. <Tima Harris PA-C - Last Filed: 07/09/24 02:28> Lab Data Result diagrams: 07/08/24 16:30 07/08/24 16:30 <Emerita Broussard PA-C - Last Filed: 07/09/24 17:33> Labs: Lab Results 07/08/24 07/08/24 Range/Units 16:30 16:32 WBC 10.0 (4.5-10.0) K/mm3 RBC 5.25 (4.2-5.4) M/mm3 Hgb 15.1 H (12.0-15.0) g/dL Hct 46.2 (37.0-47.0) % MCV 88.0 (80-100) fl MCH 28.8 (26-34) pg MCHC 32.7 (32-36) g/dl RDW 12.2 (11.5-14.5) % Plt Count 251 (150-375) k/mm3 MPV 10.6 H (7.4-10.4) fl Immature Gran % (Auto) 0.2 (0-0.5) % Neut % (Auto) 68.9 (45.5-73.1) % Lymph % (Auto) 24.5 (18.3-44.2) % Scott % (Auto) 5.4 (2.6-8.5) % Eos % (Auto) 0.7 (0-4.4) % Baso % (Auto) 0.3 (0.2-1.2) % Lymph # (Auto) 2.45 (0.9-3.2) K/mm3 Scott # (Auto) 0.5 (0.1-0.6) K/mm3 Eos # (Auto) 0.1 (0-0.3) K/mm3 Baso # (Auto) 0.0 (0.0-0.1) K/mm3 Abs Immat Gran (auto) 0.02 (0.00-0.031) K/mm3 Absolute Neuts (auto) 6.9 H (1.3-6.7) K/mm3 Absolute Nucleated RBC 0.000 (0.0-0.012) K/mm3 Nucleated RBC % 0.0 (0.0-0.2) % PT 13.3 (11.1-14.7) Seconds INR 1.0 APTT 30.5 (22.3-36.8) Seconds Sodium 141 (137-145) mmol/L Potassium 3.4 (3.4-5.0) mmol/L Chloride 102 (98-107) mmol/L Carbon Dioxide 26 (22-30) mmol/L Anion Gap 13 H (4-12) mmol/L BUN 12 (7-17) mg/dL Creatinine 0.66 L (0.7-1.0) mg/dL Estim Creat Clear Calc Not Reportable Estimated GFR > 60 (59 - ) Glucose 120 H (65-110) mg/dL POC Capillary Glucose 142 H (65-105) mg/dl Calcium 9.4 (8.4-10.2) mg/dL Total Bilirubin 0.5 (0.2-1.3) mg/dL AST 29 (14-36) U/L ALT 29 (6-35) U/L Alkaline Phosphatase 65 (38-126) U/L Troponin I < 0.012 (0.000-0.034) ng/mL Total Protein 7.0 (6.3-8.2) g/dL Albumin 4.5 (3.5-5.1) g/dL <Emerita Broussard PA-C - Last Filed: 07/09/24 17:33> Lab Results 07/08/24 07/08/24 Range/Units 16:30 16:32 WBC 10.0 (4.5-10.0) K/mm3 RBC 5.25 (4.2-5.4) M/mm3 Hgb 15.1 H (12.0-15.0) g/dL Hct 46.2 (37.0-47.0) % MCV 88.0 (80-100) fl MCH 28.8 (26-34) pg MCHC 32.7 (32-36) g/dl RDW 12.2 (11.5-14.5) % Plt Count 251 (150-375) k/mm3 MPV 10.6 H (7.4-10.4) fl Immature Gran % (Auto) 0.2 (0-0.5) % Neut % (Auto) 68.9 (45.5-73.1) % Lymph % (Auto) 24.5 (18.3-44.2) % Scott % (Auto) 5.4 (2.6-8.5) % Eos % (Auto) 0.7 (0-4.4) % Baso % (Auto) 0.3 (0.2-1.2) % Lymph # (Auto) 2.45 (0.9-3.2) K/mm3 Scott # (Auto) 0.5 (0.1-0.6) K/mm3 Eos # (Auto) 0.1 (0-0.3) K/mm3 Baso # (Auto) 0.0 (0.0-0.1) K/mm3 Abs Immat Gran (auto) 0.02 (0.00-0.031) K/mm3 Absolute Neuts (auto) 6.9 H (1.3-6.7) K/mm3 Absolute Nucleated RBC 0.000 (0.0-0.012) K/mm3 Nucleated RBC % 0.0 (0.0-0.2) % PT 13.3 (11.1-14.7) Seconds INR 1.0 APTT 30.5 (22.3-36.8) Seconds Sodium 141 (137-145) mmol/L Potassium 3.4 (3.4-5.0) mmol/L Chloride 102 (98-107) mmol/L Carbon Dioxide 26 (22-30) mmol/L Anion Gap 13 H (4-12) mmol/L BUN 12 (7-17) mg/dL Creatinine 0.66 L (0.7-1.0) mg/dL Estim Creat Clear Calc Not Reportable Estimated GFR > 60 (59 - ) Glucose 120 H (65-110) mg/dL POC Capillary Glucose 142 H (65-105) mg/dl Calcium 9.4 (8.4-10.2) mg/dL Total Bilirubin 0.5 (0.2-1.3) mg/dL AST 29 (14-36) U/L ALT 29 (6-35) U/L Alkaline Phosphatase 65 (38-126) U/L Troponin I < 0.012 (0.000-0.034) ng/mL Total Protein 7.0 (6.3-8.2) g/dL Albumin 4.5 (3.5-5.1) g/dL <DELIA Monaco Last Filed: 07/09/24 02:28> Imaging Data Radiologist's impression: ITS Impressions Head CT 07/08/24 16:20 IMPRESSION: 1. Normal brain. Chest X-Ray 07/08/24 16:22 IMPRESSION: 1. No acute cardiopulmonary disease. <DELIA Mckeon Last Filed: 07/09/24 17:33> ECG Data EKG #1: ECG completion date: 07/08/24 <DELIA Monaco Last Filed: 07/09/24 02:28> ECG completion time: 16:30 <Tima Harris PA-C - Last Filed: 07/09/24 02:28> Prior ECG tracings: not available for review <Tima Harris PA-C - Last Filed: 07/09/24 02:28> Interpretation: Sinus rhythm Rate 97 Normal QRS Normal QTC No acute ischemic findings <DELIA Monaco Last Filed: 07/09/24 02:28> Critical Care Time Critical Care Time Critical Care Time: No <Emerita Broussard PA-C - Last Filed: 07/09/24 17:33> Discharge Plan Discharge Clinical Impression: Migraine Qualifiers: Migraine type: unspecified Status migrainosus presence: without status migrainosus Intractability: not intractable Qualified Code(s): G43.909 - Migraine, unspecified, not intractable, without status migrainosus <DELIA Mckeon Last Filed: 07/09/24 17:33> Patient Disposition: Home, Self-Care <DELIA Mckeon Last Filed: 07/09/24 17:33> Condition: Stable <DELIA Mckeon Last Filed: 07/09/24 17:33> Instructions: Antibiotic Form <Emerita Broussard PA-C - Last Filed: 07/09/24 17:33> Additional Instructions: Your exam and imaging today are reassuring overall. This is most likely related to a complex migraine. Please take Tylenol and ibuprofen regularly for headaches at home. Follow-up with PCP on this issue. If you have any new or worsening symptoms please return to the ER for further evaluation. <Emerita Broussard PA-C - Last Filed: 07/09/24 17:33> Patient Language: Estonian <Emerita Broussard PA-C - Last Filed: 07/09/24 17:33> Prescriptions: No Action doxycycline hyclate 100 mg capsule 100 mg PO BID 7 Days Qty: 14 0RF prednisone 20 mg tablet 40 mg PO DAILY 5 Days Qty: 10 0RF <Emerita Broussard PA-C - Last Filed: 07/09/24 17:33> Follow-up/Referrals: PHYSICIAN,CENSUS ENUMERATOR [Non-Staff] - Eligio Patel MD [Physician] - <Emerita Broussard PA-C - Last Filed: 07/09/24 17:33> Time of Disposition: 22:04 <Emerita Broussard PA-C - Last Filed: 07/09/24 17:33> 22:04 <Tima Harris PA-C - Last Filed: 07/09/24 02:28>
--- NOTE | 2024-07-08 15:57 | ECG_ITS ---
Test Date: 2024-07-08 16:30:30 Measurements Intervals [place] Rate: 97 P: 65 HI: 147 QRS: 37 QRSD: 77 T: 48 QT: 341 QTc: 434 Interpretive Statements SINUS RHYTHM LOW QRS VOLTAGE IN PRECORDIAL LEADS [QRS DEFLECTION < 1.0 mV IN CHEST LEADS] MODERATE ST DEPRESSION [0.05+ mV ST DEPRESSION] No previous ECG available for comparison Electronically Signed On 07-09-2024 14:15:01 MATHEMATICS LECTURER by Rowdy Holland M.D.
--- OUTSIDE RECORDS SUMMARY | 2024-07-08 15:59 | XMS_ITS | Referral Summary ---
Author Organization [facility] Address [facility] [place] [address] Care Team Providers Care [employer] Humanities Teacher Name Role Phone No, Physician Primary Care Provider [phone] Allergies Active Allergy Reactions Criticality Noted Date [...] (05/25/2019): Added automatically from request for surgery [id number] Ulnar neuropathy of left upper extremity 019 Overview (10/17/2018): Added automatically from request for surgery [id number] Ulnar nerve entrapment 01/03/2015 Hypotension 01/02/2015 Brachial [...] on file Legal Sex Female 6:13 AM CERTIFIED TUMOR REGISTRAR Gender Identity Not on file Sexual Orientation Straight 09/21/2019 3: 08 PM CDT Last Filed Vital Signs Vital Sign Reading Time Taken Comments Blood Pressure 129/74 02/08/2021 3:44 PM CDT Pulse 71 02/08/2021 3:44 PM CDT Temperature 37.1 ??C (98.8 ??F) 06/07/2019 2:07 PM CS T Respiratory Rate 20 02/08/2021 3:44 PM CDT Oxygen Saturation 99% 06/07/2019 2:55 PM CERTIFIED TUMOR REGISTRAR Inhaled Oxygen Concentration - - Weight 70.3 kg (155 lb) 06/07/2019 9:41 AM CERTIFIED TUMOR REGISTRAR Height 177.8 cm (5' 10 ) 06/07/2019 9:41 AM CERTIFIED TUMOR REGISTRAR Body Mass Index 22.24 06/07/2019 9:41 AM CERTIFIED TUMOR REGISTRAR Plan of Treatment Not on file Goals [...] as needed Medical Devices Implanted Type Area Axle Inspector Device Identifier Shelf Expiration Date Model / Serial / Lot [employer] Ar-1938bc Suturetak Fiberwire Arthrex 3mm 12.7mm Knotless Cruciate Ligament - Sn/A - [id number] Implanted:Qt y: 1 on 06/07/2019 by Cayden Sousa MD at [facility] Other - see comments Left: Shoulder [employer] [id number] 04/08/2021 AR-1938B C / N/A / [id number] Description:Brought in [place] the [place] [employer] Ar-1938bc Suturetak Fiberwire Arthrex 3mm 12.7mm Knotless Cruciate Ligament - Sn/A - [id number] Implanted:Qt y: 1 on 06/07/2019 by Cayden Sousa MD at [facility] Other - see comments Left: Shoulder [employer] [id number] 11/06/2020 AR-1938B C / N/A / [id number] Description:Brought in from the [place] [employer] Ar-1938bc Suturetak Fiberwire Arthrex 3mm 12.7mm Knotless Cruciate Ligament - Sn/A - [id number] Implanted:Qt y: 1 on 06/07/2019 by Cayden Sousa MD at [facility] Other - see comments Left: Shoulder [employer] [id number] 04/08/2021 AR-1938B C / N/A / [id number] Description:Brought in from the [place] Screw Screw Left: Shoulder Insurance [facility] [place] [facility] [place] Care Teams [employer] Teacher Relationship Specialty Start Date End Date No, Physician PCP - General 09/12/18
--- OUTSIDE RECORDS SUMMARY | 2024-07-08 15:59 | XMS_ITS | Encounter Summary ---
Author Organization [facility] Address [facility] [place] [address] [place] [address] Care Team Providers Care Embroiderer Name Role Phone Adelfo Bailee [facility] Primary Care Provider + Encounter Details Date Type Department Care Team (Late st Contact Info) Description 07/01/2022 PeerSpacet Message Enc [facility] Medical Group Family & Internal Medicine [facility] [address] [place] [address] [place] [phone] [facility] [address] [place] [address] Dicyclomine Update Social History Tobacco [...] Coronavirus/COVID-19? No / Unsure 06/25/2022 3:47 PM HOME APPLIANCE WASHING MACHINE MECHANIC documented as of this encounter Plan of Treatment Not on file documented as of this encounter Visit Diagnoses Not on filedocumented in this encounter Additional Health Concerns Assessment Noted Time PHQ-9 Depression Total Score: 11 022 11:03 AM HOME APPLIANCE WASHING MACHINE MECHANIC documented as of this encounter Care Teams Embroiderer Relationship Specialty Start Date End Date Bailee Emanuel FNP- PCP - General Nurse Practitioner Family 05/16/2207/11 documented as of this encounter
--- OUTSIDE RECORDS SUMMARY | 2024-07-08 15:59 | XMS_ITS | Clinical Summary ---
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 Pain in shoulder 01/02/2015 Surgical History Surgery Date Site/Laterality Comments CA APPENDECTOMY Appendectomy - (Added by TW Conv) SINUS SURGERY Sinus Surgery - (Added by TW Conv) CA DELIVERY ONLY Section - (Added by TW Conv) CA LIG/TRNSXJ FLP TUBE ABDL/VAG APPR UNI/BI Tubal Ligation - (Added by TW Conv) CA TONSILLECTOMY PRIMARY/SECONDARY <AGE 12 Tonsillectomy - (Added [...] on file Legal Sex Female 6:13 AM METER CALIBRATOR Gender Identity Not on file Sexual Orientation Straight 09/21/2019 3: 08 PM CDT Obstetrics History Last Filed Vital Signs Vital Sign Reading Time Taken Comments Blood Pressure 129/74 02/08/2021 3:44 PM CDT Pulse 71 02/08/2021 3:44 PM CDT Temperature 37.1 ??C (98.8 ??F) 06/07/2019 2:07 PM CS T Respiratory Rate 20 02/08/2021 3:44 PM CDT Oxygen Saturation 99% 06/07/2019 2:55 PM METER CALIBRATOR Inhaled Oxygen Concentration - - Weight 70.3 kg (155 lb) 06/07/2019 9:41 AM METER CALIBRATOR Height 177.8 cm (5' 10 ) 06/07/2019 9:41 AM METER CALIBRATOR Body Mass Index 22.24 06/07/2019 9:41 AM METER CALIBRATOR Plan of Treatment Not on file Goals [...] as needed Medical Devices Implanted Type Area Dry Cleaning Manager Device Identifier Shelf Expiration Date Model / Serial / Lot [employer] Ar-1938bc Suturetak Fiberwire Arthrex 3mm 12.7mm Knotless Cruciate Ligament - Sn/A - [id number] Implanted:Qt y: 1 on 06/07/2019 by Cayden Sousa MD at [facility] Other - see comments Left: Shoulder [employer] [id number] 04/08/2021 LOLITA-1938B C / N/A / [id number] Description:[place] in [place] the [place] [employer] Ar-1938bc Suturetak Fiberwire Arthrex 3mm 12.7mm Knotless Cruciate Ligament - Sn/A - [id number] Implanted:Qt y: 1 on 06/07/2019 by Cayden Sousa MD at [facility] Other - see comments Left: Shoulder [employer] [id number] 11/06/2020 AR-8B C / N/A / [id number] Description:Brought in from the [place] [employer] Ar-1938bc Suturetak Fiberwire Arthrex 3mm 12.7mm Knotless Cruciate Ligament - Sn/A - [id number] Implanted:Qt y: 1 on 06/07/2019 by Cayden Sousa MD at [facility] Other - see comments Left: Shoulder [employer] [id number] 04/08/2021 AR-1938B C / N/A / [id number] Description:Brought in from the [place] Screw Screw Left: Shoulder Insurance [employer] MD [employer] MD [facility] Care Teams Slat Twister Relationship Specialty Start Date End Date No, Physician PCP - General 09/12/18
--- OUTSIDE RECORDS SUMMARY | 2024-07-08 15:59 | XMS_ITS | Encounter Summary ---
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
--- OUTSIDE RECORDS SUMMARY | 2024-07-08 15:59 | XMS_ITS | Encounter Summary ---
Author Organization [facility] Address [facility] [place] [address] [place] [address] Care Team Providers Care Automobiles Salesperson Name Role Phone Bailee Emanuel [facility] Primary Care Provider + Encounter Details Date Type Department Care Team (Late st Contact Info) Description 07/29/2022 BIME Analyticst Message Enc [facility] Medical Group Family & Internal Medicine [address] [address] Bailee Emanuel [facility] [address] [place] [address] C. Diff Test Social History [...] Coronavirus/COVID-19? No / Unsure 07/25/2022 1:29 PM FIRE MANAGER documented as of this encounter Progress Notes * Lola Viramontes RN - 07/30/2022 8:26 AM CST Noted. MANAGER documented in this encounter Plan of Treatment Not on file documented as of this encounter Visit Diagnoses Not on filedocumented in this encounter Additional Health Concerns Assessment Noted Time PHQ-9 Depression Total Score: 3 07/25/19 23 2:07 PM FIRE MANAGER documented as of this encounter Care Teams Automobiles Salesperson Relationship Specialty Start Date End Date Bailee Emanuel FNP- PCP - General Nurse Practitioner Family 05/16/2207/11 documented as of this encounter
--- OUTSIDE RECORDS SUMMARY | 2024-07-08 15:59 | XMS_ITS | Clinical Summary ---
Author Organization [facility] Address [facility] [place] [address] [place] [address] Care Team Providers Care Unix Architect Name Role Phone Unavailable Primary Care Provider [...] Active butalbital-aceta minophen-caffein e-codeine (FIORICET WITH CODEINE) 54-105-75-30 MG capsuleIndicatio ns:Acute Pain < 7 Day Supply Take 1 capsule by mouth every 4 (four) hours as needed for Headaches. 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
[2024-07-08 16:36] VITALS: BP 120/71; PULSE 95; RESP 16; O2SAT 98
[2024-07-08 16:37] LABS: Glucose Point of Care 142 mg/dl (65-105)
[2024-07-08 16:38] LABS: Basophils Percent Auto 0.3 % (0.2-1.2); Eosinophils Absolute Auto 0.1 K/mm3 (0-0.3); Eosinophils Percent Auto 0.7 % (0-4.4); Hematocrit 46.2 % (37.0-47.0); Hemoglobin 15.1 g/dL (12.0-15.0); Immature Granulocyte Absolute 0.02 K/mm3 (0.00-0.031); Immature Granulocyte Percent A 0.2 % (0-0.5); Lymphocytes Absolute Auto 2.45 K/mm3 (0.9-3.2); Lymphocytes Percent Auto 24.5 % (18.3-44.2); Mean Corpuscular HGB Conc 32.7 g/dl (32-36); Mean Corpuscular Hemoglobin 28.8 pg (26-34); Mean Platelet Volume 10.6 fl (7.4-10.4); Monocytes Absolute Auto 0.5 K/mm3 (0.1-0.6); Monocytes Percent Auto 5.4 % (2.6-8.5); Neutrophils Absolute Auto 6.9 K/mm3 (1.3-6.7); Neutrophils Percent Auto 68.9 % (45.5-73.1); Platelet Count Result 251 k/mm3 (150-375); Red Blood Count 5.25 M/mm3 (4.2-5.4); Red Cell Distribution Width 12.2 % (11.5-14.5)
[2024-07-08 16:48] LABS: Alanine Aminotransferase 29 U/L (6-35); Albumin Level 4.5 g/dL (3.5-5.1); Alkaline Phosphatase 65 U/L (38-126); Anion Gap 13 mmol/L (4-12); Aspartate Amino Transferase 29 U/L (14-36); Bilirubin,Total 0.5 mg/dL (0.2-1.3); Blood Urea Nitrogen 12 mg/dL (7-17); Calcium 9.4 mg/dL (8.4-10.2); Carbon Dioxide 26 mmol/L (22-30); Chloride 102 mmol/L (98-107); Estimated Glomerular Filt Rate > 60; Glucose 120 mg/dL (65-110); Potassium 3.4 mmol/L (3.4-5.0); Prothrombin Time 13.3 Seconds (11.1-14.7); Sodium 141 mmol/L (137-145)
[2024-07-08 16:49] LABS: Partial Thromboplastin Time 30.5 Seconds (22.3-36.8)
[2024-07-08 16:59] LABS: Troponin I < 0.012 ng/mL (0.000-0.034)
[2024-07-08 20:44] VITALS: BP 118/67; PULSE 82; RESP 22; O2SAT 100
[2024-07-08 20:47] VITALS: BP 111/72; PULSE 85; RESP 20; O2SAT 99
[2024-07-08] MEDS: KETOROLAC 15 MG/ML VIAL (*BKC) IV PUSH (21:24)
[2024-07-08] MEDS: diphenhydrAMINE HCl INJ 50 MG/ML VIAL 25 MG IV PUSH (21:25)
[2024-07-08 22:32] VITALS: BP 106/66; PULSE 74; RESP 17; O2SAT 99
== END 2024-07-08 22:34 | disposition home or self-care (01) ==
PROVIDERS: Physician Assistant; Emergency Provider Physician Assistant
DX: G43.909 Migraine, unspecified, not intractable, without status migrainosus (principal)
CPT/HCPCS: 36415; 70450; 71045; 80053; 82948; 84484; 85025; 85610; 85730; 93005; 96374; 96375; 99284; J1200; J1885

== ENCOUNTER 2024-08-19 08:17 | Emergency (ER) | payer BC, SELFPAY ==
--- NOTE | 2024-08-19 08:18 | ED_ITS ---
HPI - URI/Sore Throat General Chief Complaint: Ear Stated Complaint: EARACHE/SINUS Time Seen by Provider: 08/19/24 08:18 Source: patient Mode of arrival: ambulatory Limitations: no limitations History of Present Illness HPI Narrative: Patient is a 39-year-old female presents with sinus congestion, sinus pressure, right earache and headache for 10 days. Denies any fever, chills, nausea, vomiting, diarrhea. Takes daily allergy medication and other medication given by her ENT. Chronic sinusitis. Related Data Home Medications ?Medication ?Instructions ?Recorded ?Confirmed ?Last Taken ?Type cholecalciferol (vitamin D3) 50 50 mcg PO DAILY 08/13/24 08/19/24 Unknown History mcg (2,000 unit) capsule medium chain triglycerides 7.7 15 ml PO DAILY 08/13/24 08/19/24 Unknown History kcal/mL oral oil (MCT Oil) multivitamin (Daily Multi-Vitamin 1 tablet PO DAILY 08/13/24 08/19/24 Unknown History tablet) omega-3 360 ny-nul-iao-fish cap PO 08/13/24 08/13/24 Unknown History oil-vitamin D3 12.5 mcg capsule riboflavin (vitamin B2) 25 mg 25 mg PO DAILY 08/13/24 08/19/24 Unknown History tablet turmeric 400 mg capsule mg PO 08/13/24 08/13/24 Unknown History vitamin B complex 1 cap PO DAILY 08/13/24 08/19/24 Unknown History Allergies Allergy/AdvReac Type Severity Reaction Status Date / Time amoxicillin Allergy Unknown Unknown Verified 08/19/24 08:48 cefaclor Allergy Unknown Unknown Verified 08/19/24 08:48 Penicillins Allergy Unknown Unknown Verified 08/19/24 08:48 Review of Systems Review of Systems: All systems reviewed & are unremarkable except as noted in HPI and below Constitutional: Constitutional: Denies chills, Denies fatigue, Denies fever(s), Reports headache(s), Denies malaise and Denies weakness Eyes: Eyes: Denies blurry vision, Denies itchy eyes and Denies loss of vision ENT: Reports otalgia, Reports headache(s), Denies nasal congestion, Reports sinus pain, Reports sinus pressure and Denies sore throat Cardiovascular: Cardiovascular: Denies chest pain, Denies irregular heart rhyt hm and Denies dyspnea Respiratory: Respiratory: Denies cough and Denies dyspnea Gastrointestinal: Gastrointestinal: Denies abdominal pain, Denies diarrhea, Denies nausea and Denies vomiting Musculoskeletal: Musculoskeletal: Denies back pain, Denies myalgias and Denies arthralgias Integumentary/Breasts: Skin/Breast: Denies pruritus and Denies rash Neurologic: Reports headache(s), Denies loss of vision and Denies weakness Psychiatric: Psychiatric: Reports no additional psychiatric complaints Endocrine: Endocrine: Denies fatigue Allergic/Immunologic: Allergic/Immunologic: Denies itchy eyes PMFSH Past Medical History Medical History Stomach ulcer IBS (irritable bowel syndrome) GERD (gastroesophageal reflux disease) Anxiety Surgical History Surgical History History of surgery on arm L nerve surgery and a broken arm History of tonsillectomy H/O shoulder surgery [place] teeth extracted H/O tubal ligation Hx of abdominal hysterectomy R Ovary Removed Hx of dilation and curettage History of endometrial ablation Hx of section History of colposcopy Hx of appendectomy Family History Family History Father Depression Hypertension Cerebrovascular accident Family history of kidney disease Diabetes mellitus Heart disease Mother Depression Cervical cancer Sibling Thyroid disease Grandparent Depression Breast cancer Other Family history of malignant neoplasm of breast in first degree relative Social History Social History Smoking status: Never smoker Second hand tobacco smoke exposure: No Alcohol intake: current Substance use: never Comments At time of signature, agree with nursing past medical, surgical, social and family history. There is no relevant family history pertinent to the presenting complaint. Exam Const: General: cooperative, healthy appearing, comfortable, no acute distress and well nourished Nutritional Appearance: well nourished Orientation/consciousness: patient oriented x3 Limitations: no limitations HENMT: Head: normal to inspection, normocephalic and atraumatic Ears: hearing grossly normal bilaterally, external ears normal, TM's normal bilaterally, EAC's normal and no periauricular adenopathy Face/Nose/Sinus: Normal external nose present, Abnormal mucous membranes and turbinates present erythematous bilateral and diffuse, normal facial exam, face symmetric and Facial tenderness on exam of face and sinuses Face and sinus: normal facial exam and face symmetric Mouth: Yes Normal oral and palatal mucosa present, Yes lip normal, Yes tongue normal, Yes Normal salivary glands and ducts present, Yes oropharynx normal and Yes moist mucous membranes Teeth and gingiva: dentition normal Throat: posterior oropharynx normal, tonsils normal and uvula midline Eyes: General: appearance normal, both eyes and all related structures Alignment and Position: alignment normal and position normal Periorbital: periorbital findings normal Eyelids: eyelids normal Pupils: Equal, round and reactive pupils present Neck: Neck: normal visual inspection, full ROM, no lymphadenopathy and supple Chest: Chest palpation & inspection: normal inspection of the chest and normal palpation of entire chest wall Resp: Effort & Inspection: normal respiratory effort and able to speak in complete sentences Auscultation: clear to auscultation bilaterally, no crackles, no rales, no rhonchi and no wheezes Cardio: Rate: regular rate Rhythm: regular rhythm Heart sounds: S1 normal heart sound present and S2 normal heart sound present GI: Inspection: normal to inspection Skin: General skin exam: normal color and no rashes or lesions noted Neuro: General: patient oriented x3 and moves all extremities Cranial nerves: Yes Equal, round and reactive pupils present Speech: normal speech Gait exam (Neuro): Normal gait present Extrem: General: normal to inspection, full ROM and no edema Psych: Appearance: grossly normal and well kempt Mental Status: mental status grossly normal Speech and movement: Normal speech and movement present Affect: normal affect Attitude: cooperative Thought process: Normal thought process present Course Course Emergency Course: Discharge instructions reviewed with patient, as well as provided in writing per nursing staff. The instructions also include specific and strict return/GO TO THE ER as well as f/u information. All questions have been answered, and the patient deny any further questions with discharge and discharge plan. Portions of this record may have been created with voice recognition software Level of Care: Express Care Visit Vital Signs Vital signs: Vital Signs Temperature 36.5 C 08/19/24 08:42 Pulse Rate 76 08/19/24 08:42 Respiratory Rate 16 08/19/24 08:42 Blood Pressure 110/76 08/19/24 08:42 Pulse Oximetry 100 08/19/24 08:42 Temperature 36.5 C 08/19/24 08:42 Pulse Rate 76 08/19/24 08:42 Respiratory Rate 16 08/19/24 08:42 Blood Pressure 110/76 08/19/24 08:42 Pulse Oximetry 100 08/19/24 08:42 Reviewed MDM - URI/Sore Throat MDM Narrative Medical decision making narrative: Patient has history of chronic sinusitis and sees ENT. Patient has prescription allergy medicine that she takes daily. Tenderness on palpation to sinuses. Will prescribe doxy and steroid. Patient states She cannot tolerate prednisone due to anxiety, discussed Medrol Dosepak. Informed patient of Light sensitivity with doxy. Pt well hydrated appearing, in no respiratory distress, hemodynamically stable. Recommend supportive care. The patient is stable at time of discharge the clinical impression was discussed and the patient was given the opportunity to ask questions, which were addressed as completely as possible given the information available at present. Anticipatory guidance and return to care precautions were discussed and the importance of primary care follow-up was stressed and encouraged. The patient voiced understanding of the plan, in dications to return, and the need for follow-up. Differential diagnosis considered: Bronchitis, Luna virus, strep pharyngitis, allergic rhinitis, upper respiratory tract infection, sinusitis, rhinosinusitis, nasopharyngitis. viral pharyngitis, otitis media, otitis externa, otitis effusion, foreign body, cerumen impaction, viral syndrome, and influenza.? Exam findings show no acute concerns or changes; patient is non-toxic appearing and is in no distress.? Patient is appropriate for outpatient treatment and follow- up.? Medical Records Attestation: I reviewed the patient's medical records. Discharge Plan Discharge Clinical Impression: Sinusitis Qualifiers: Sinusitis location: maxillary Chronicity: acute Recurrence: non-recurrent Qualified Code(s): J01.00 - Acute maxillary sinusitis, unspecified Patient Disposition: Home, Self-Care Condition: Stable Instructions: Sinusitis (ED) Additional Instructions: Take antibiotic as prescribed. Take steroids Per package instructions Other symptomatic treatments include: -Alternate Tylenol and Motrin per package directions for fever or pain: Tylenol 650-1000mg by mouth every 4-6 hours. Do not exceed 4000mg in 24 hours. Advil (Ibuprofen) 600 mg by mouth every 6 hours. Do not exceed 2400mg in 24 hours. 8 AM: Tylenol 11 AM: Ibuprofen 2 PM: Tylenol 5 PM: Ibuprofen 8 PM: Tylenol 11 PM: Ibuprofen 2 AM: Tylenol 5 AM: Ibuprofen -Antihistamine medication such as Benadryl at night and Zyrtec/Claritin/Mayte during the day can help improve symptoms. -Use Flonase twice a day for 5 days then daily to help reduce the inflammation and dry up your sinuses. -You can also use Sudafed or Mucinex. Be sure to drink plenty of water with these medications at least 8 ounces with every dose and it is important to drink 8 to 10 glasses of water per day. Water is a natural decongestant -Eat and drink things that are easy to swallow, like tea or soup, or popsicles. -Oral rinses such as: Salt water gargles and/or may use topical anesthetic (eg. Chloraseptic spray) or lozenges to relieve dryness or throat pain). -Frequent hand washing or hand women's basketball coach is one of the best ways to prevent spread of infection. -Using a vaporizer or humidifier at night will also help thin secretions and help with coughing up phlegm. Call your Primary Care Doctor and make a follow-up appointment in 3 days. If your cough worsens, you develop a fever greater than 103, you develop shaking chills, a fast heartbeat, trouble breathing and/or feel you are are breathing m uch faster than usual, call your Primary Care Doctor or go to the ER. You have been prescribed Doxycycline today.It may make your skin more sensitive to sunlight than normal. Make sure you wear sunscreen at all times when outside while on the medication. Patient Language: Malay Prescriptions: New doxycycline monohydrate 100 mg tablet 100 mg PO BID 10 Days Qty: 20 0RF methylprednisolone [Medrol (Brad)] 4 mg tablets,dose pack See Rx Instructions .ROUTE .COMPLEX Qty: 21 0RF Rx Instructions: orally per package directions No Action turmeric 400 mg capsule PO cholecalciferol (vitamin D3) 50 mcg (2,000 unit) capsule 50 mcg PO DAILY riboflavin (vitamin B2) 25 mg tablet 25 mg PO DAILY mf-1-set-epa-fish oil-vit D3 360 mg- 12.5 mcg capsule PO vitamin B complex Capsule 1 cap PO DAILY MCT Oil 7.7 kcal/mL oil 15 ml PO DAILY multivitamin [Daily Multi-Vitamin] Tablet 1 tablet PO DAILY bupropion HCl [Wellbutrin XL] 150 mg tablet extended release 24 hr 150 mg PO QAM Qty: 30 2RF Follow-up/Referrals: Eligio Patel MD [Physician] - 3 Days Stand Alone Forms: Work/School Release IP Time of Disposition: 09:13
[2024-08-19 08:42] VITALS: BP 110/76; PULSE 76; RESP 16; TEMP 36.5; O2SAT 100
== END 2024-08-19 09:21 | disposition home or self-care (01) ==
PROVIDERS: Emergency Provider Nurse Practitioner Family
DX: J01.00 Acute maxillary sinusitis, unspecified (principal); Z79.899 Other long term (current) drug therapy
CPT/HCPCS: 99213; G0463

== ENCOUNTER 2024-09-17 08:07 | Outpatient (CLI) | payer BC, SELFPAY ==
--- OUTSIDE RECORDS SUMMARY | 2024-09-17 08:13 | XMS_ITS | Clinical Summary ---
Author Organization [facility] Address [address] [place] [address] Care Team Providers Care Tool Lapper Hand Name Role Phone Unavailable Primary Care Provider [...] Active butalbital-aceta minophen-caffein e-codeine (FIORICET WITH CODEINE) 14-678-76-30 MG capsuleIndicatio ns:Acute Pain < 7 Day Supply Take 1 capsule by mouth every 4 (four) hours as needed for Headaches. 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
--- OUTSIDE RECORDS SUMMARY | 2024-09-17 08:13 | XMS_ITS | Encounter Summary ---
Author Organization [facility] Address [address] [place] [address] Care Team Providers Care Plier Worker Name Role Phone Bailee Emanuel [facility] Primary Care Provider + Encounter Details Date Type Department Care Team (Late st Contact Info) Description 07/29/2022 Mithridiont Message Enc [facility] Medical Group Family & Internal Medicine [address] [address] Bailee Emanuel [place] [id number] [place] [address] C. Diff Test Social History [...] No / Unsure 07/25/2022 1:29 PM FIRE SPRINKLER DESIGNER documented as of this encounter Progress Notes * Lola Viramontes RN - 07/30/2022 8:26 AM CST Noted. SPRINKLER DESIGNER documented in this encounter Plan of Treatment Not on file documented as of this encounter Visit Diagnoses Not on filedocumented in this encounter Additional Health Concerns Assessment Noted Time PHQ-9 Depression Total Score: 3 07/25/19 23 2:07 PM FIRE SPRINKLER DESIGNER documented as of this encounter Care Teams Plier Worker Relationship Specialty Start Date End Date Bailee Emanuel FNP- PCP - General Nurse Practitioner Family 05/16/2207/11 documented as of this encounter
--- OUTSIDE RECORDS SUMMARY | 2024-09-17 08:13 | XMS_ITS | Referral Summary ---
Author Organization [facility] Address [facility] [place] [address] Care Team Providers Care Wood Tool Maker Name Role Phone No, Physician Primary Care Provider [phone] Allergies Active Allergy Reactions Criticality Noted Date [...] (05/25/2019): Added automatically from request for surgery [id number] Ulnar neuropathy of left upper extremity 019 Overview (10/17/2018): Added automatically from request for surgery [id number] Ulnar nerve entrapment 01/03/2015 Hypotension 01/02/2015 Brachial [...] on file Legal Sex Female 6:13 AM NUT SIFTER Gender Identity Not on file Sexual Orientation Straight 09/21/2019 3: 08 PM CDT Last Filed Vital Signs Vital Sign Reading Time Taken Comments Blood Pressure 129/74 02/08/2021 3:44 PM CDT Pulse 71 02/08/2021 3:44 PM CDT Temperature 37.1 C (98.8 F) 06/07/2019 2:07 PM NUT SIFTER Respiratory Rate 20 02/08/2021 3:44 PM CDT Oxygen Saturation 99% 06/07/2019 2:55 PM NUT SIFTER Inhaled Oxygen Concentration - - Weight 70.3 kg (155 lb) 06/07/2019 9:41 AM NUT SIFTER Height 177.8 cm (5' 10 ) 06/07/2019 9:41 AM NUT SIFTER Body Mass Index 22.24 06/07/2019 9:41 AM NUT SIFTER Plan of Treatment Not on file Goals [...] as needed Medical Devices Implanted Type Area Electrical Products Sales Engineer Device Identifier Shelf Expiration Date Model / Serial / Lot Ar[employer]rex [employer] Ar-1938bc Suturetak Fiberwire Arthrex 3mm 12.7mm Knotless Cruciate Ligament - Sn/A - [id number] Implanted:Qt y: 1 on 06/07/2019 by Cayden Sousa MD at [facility] Other - see comments Left: Shoulder [employer] [id number] 04/08/2021 AR-1938B C / N/A / [id number] Description:Brought in from the [place] [employer] Ar-1938bc Suturetak Fiberwire Arthrex 3mm 12.7mm Knotless Cruciate Ligament - Sn/A - [id number] Implanted:Qt y: 1 on 06/07/2019 by Cayden Sousa MD at [facility] Other - see comments Left: Shoulder [employer] [id number] 11/06/2020 AR-1938B C / N/A / [id number] Description:Brought in from the [place] [employer] Ar-1938bc Suturetak Fiberwire Arthrex 3mm 12.7mm Knotless Cruciate Ligament - Sn/A - [id number] Implanted:Qt y: 1 on 06/07/2019 by Cayden Sousa MD at [facility] Other - see comments Left: Shoulder [employer] Inc [id number] 04/08/2021 AR-1938B C / N/A / [id number] Description:Brought in from the [place] Screw Screw Left: Shoulder Insurance [facility] [place] Member Subscriber Plan / Payer (Ef fective 2016-Present) Name:Rand Lo Relation to Subscriber:Spouse Name:HIRAL GORDILLO Date of :1982 Payer ID:[id number] (NAIC) Type:BC OTHER Address: [address] [place] [id number] Care Teams Wood Tool Maker Relationship Specialty Start Date End Date No, Physician PCP - General 09/12/18
--- OUTSIDE RECORDS SUMMARY | 2024-09-17 08:13 | XMS_ITS | Clinical Summary ---
Author Organization [facility] Address [address] [place] [address] [place] [address] Care Team Providers Care Switchboard Mechanic Name Role Phone Unavailable Primary Care Provider Unavailabl e Encounters Date Type Department Care Team Description 08/25/2024 External Device Data ST[facility] ABSTRACTION Provider, Abstract 08/18/2024 External Device Data STL ABSTRACTION Provider, Abstract 08/17/2024 External Device Data ST[facility] ABSTRACTION Provider, Abstract 08/14/2024 External Device Data [facility] ABSTRACTION Provider, Abstract 08/13/2024 External Device Data [facility] ABSTRACTION Provider, Abstract 08/11/2024 External Device Data [facility] ABSTRACTION Provider, Abstract 07/28/2024 External Device Data [facility] ABSTRACTION Provider, Abstract 07/20/2024 External Device Data STL ABSTRACTION Provider, Abstract 07/07/2024 External Device Data ST[facility] ABSTRACTION Provider, Abstract 07/01/2024 External Device Data ST[facility] ABSTRACTION Provider, Abstract from Last 3 Months Social History Tobacco Use Types Packs/Day Years Used Date Smoking Tobacco: Never Assessed Comments Unknown Sex and Gender Information Value Date Recorded Sex Assigned at Not on file Legal Sex Female 4:32 PM CDT Gender Identity Not on file Sexual Orientation Not on file Plan of Treatment Health Maintenance Due Date Last Done Comments DTAP/TDAP/TD VACCINES (1 - Tdap) 02/19/2003 HEPATITIS B VACCINES (1 of 3 - 19+ 3-dose series) 02/19/2003 HPV/Cotest (21-29) 02/19/2005 CERVICAL CANCER SCREENING 02/19/2014 HPV/Cotest (30-65) 02/19/2014 PAP SMEAR 02/19/2014 INFLUENZA VACCINE (#1) 2024 BREAST CANCER SCREENING 2024 HPV VACCINES Aged Out No longer eligi ble based on patient's age to complete this topic
--- OUTSIDE RECORDS SUMMARY | 2024-09-17 08:13 | XMS_ITS | Encounter Summary ---
Author Organization [facility] Address [address] [place] [address] Care Team Providers Care Commercial Fisherman Name Role Phone No, Physician Primary Care Provider [phone] Encounter Details Date Type Department Care Team (Late st Contact Info) Description 02/06/2021 Telephone [facility] [address] [place] [id number] Mahad Jones, RT Social History Tobacco Use [...] on file Legal Sex Female 6:13 AM DETENTION OFFICER Gender Identity Not on file Sexual Orientation [...] on filedocumented in this encounter Care Teams Commercial Fisherman Relationship Specialty Start Date End Date No, Physician PCP - General 09/12/18 documented as of this encounter
--- OUTSIDE RECORDS SUMMARY | 2024-09-17 08:13 | XMS_ITS | Encounter Summary ---
Author Organization [facility] Address [address] [place] [address] Care Team Providers Care Real Estate Listing Consultant Name Role Phone SmithalethaBailee [facility] Primary Care Provider + Encounter Details Date Type Department Care Team (Late st Contact Info) Description 07/01/2022 Clean Filtration Technology Message Enc [facility] Medical Group Family & Internal Medicine [facility] [address] [place] [address] [place] [address] [facility] [address] [place] [address] Dicyclomine Update Social History Tobacco [...] Coronavirus/COVID-19? No / Unsure 06/25/2022 3:47 PM BALANCER documented as of this encounter Plan of Treatment Not on file documented as of this encounter Visit Diagnoses Not on filedocumented in this encounter Additional Health Concerns Assessment Noted Time PHQ-9 Depression Total Score: 11 022 11:03 AM BALANCER documented as of this encounter Care Teams Real Estate Listing Consultant Relationship Specialty Start Date End Date Bailee Emanuel FNP- PCP - General Nurse Practitioner Family 05/16/2207/11 documented as of this encounter
--- OUTSIDE RECORDS SUMMARY | 2024-09-17 08:13 | XMS_ITS | Clinical Summary ---
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 Pain in shoulder 01/02/2015 Surgical History Surgery Date Site/Laterality Comments [place] APPENDECTOM[place] Appendectomy - (Added by TW Conv) SINUS SURGERY Sinus Surgery - (Added by TW Conv) [place] DELIVERY ONLY Section - (Added by TW Conv) [place] LIG/TRNSXJ FLP TUBE ABDL/VAG APPR UNI/BI Tubal Ligation - (Added by TW Conv) [place] TONSILLECTOMY PRIMARY/SECONDARY <AGE 12 Tonsillectomy - (Added [...] on file Legal Sex Female 6:13 AM DIPPER CLOCK AND WATCH HANDS Gender Identity Not on file Sexual Orientation Straight 09/21/2019 3: 08 PM CDT Obstetrics History Last Filed Vital Signs Vital Sign Reading Time Taken Comments Blood Pressure 129/74 02/08/2021 3:44 PM CDT Pulse 71 02/08/2021 3:44 PM CDT Temperature 37.1 C (98.8 F) 06/07/2019 2:07 PM DIPPER CLOCK AND WATCH HANDS Respiratory Rate 20 02/08/2021 3:44 PM CDT Oxygen Saturation 99% 06/07/2019 2:55 PM DIPPER CLOCK AND WATCH HANDS Inhaled Oxygen Concentration - - Weight 70.3 kg (155 lb) 06/07/2019 9:41 AM DIPPER CLOCK AND WATCH HANDS Height 177.8 cm (5' 10 ) 06/07/2019 9:41 AM DIPPER CLOCK AND WATCH HANDS Body Mass Index 22.24 06/07/2019 9:41 AM DIPPER CLOCK AND WATCH HANDS Plan of Treatment Not on file Goals Goal Patient Goal Type Associated Problems Recent Progress Patient-Stated? Author CCM Chronic Pain Care Plan Chronic Care Management No Eveline Quinn RN Note: Problem: Chronic Pain Goals: 1. Minimize further functional decline 2. Maximize quality of life 3. Control pain Strategies: - Activity/exercise program recommendation - Conservative stepwise pain medicine strategy with multi-disciplinary approach - Recommend healthy lifestyle strategies and compensatory methods as needed Medical Devices Implanted Type Area Visual Associate Device Identifier Shelf Expiration Date Model / Serial / Lot Ar[employer]rex Inc Ar-1938bc Suturetak Fiberwire Arthrex 3mm 12.7mm Knotless Cruciate Ligament - Sn/A - [id number] Implanted:Qt y: 1 on 06/07/2019 by Cayden Sousa MD at [facility] Other - see comments Left: Shoulder [employer] Inc [id number] 04/08/2021 AR-1938B C / N/A / [id number] Description:Brought in from the [employer] Ar-1938bc Suturetak Fiberwire Arthrex 3mm 12.7mm Knotless Cruciate Ligament - Sn/A - [id number] Implanted:Qt y: 1 on 06/07/2019 by Cayden Sousa MD at [facility] Other - see comments Left: Shoulder [employer] Inc [id number] 11/06/2020 LOLITA-1938B C / N/A / [id number] Description:[place]ought in [place] the [place] [employer] Ar-1938bc Suturetak Fiberwire Arthrex 3mm 12.7mm Knotless Cruciate Ligament - Sn/A - [id number] Implanted:Qt y: 1 on 06/07/2019 by Cayden Sousa MD at [facility] Other - see comments Left: Shoulder [employer] Inc [id number] 04/08/2021 AR-1938B C / N/A / [id number] Description:Brought in from the [place] Screw Screw Left: Shoulder Insurance NeuroTronik MA Neuro[employer]ron[employer] MA [facility] Care Teams Pressed Or Blown Glass Worker Relationship Specialty Start Date End Date No, Physician PCP - General 09/12/18
[2024-09-17 10:33] LABS: Vitamin D 25 Hydroxy 47.7 ng/mL
[2024-09-19 01:34] LABS: FSH 3.7 mIU/mL; Prolactin 9.6 ng/mL
== END 2024-09-17 08:08 | disposition home or self-care (01) ==
LOC: ANHLAB 08:08
PROVIDERS: PCP Nurse Practitioner Obstetrics & Gynecology; Visit Provider Nurse Practitioner Obstetrics & Gynecology
DX: N95.1 Menopausal and female climacteric states (principal)
CPT/HCPCS: 36415; 82306; 83001; 84146; 84443

== ENCOUNTER 2024-10-08 11:25 | Outpatient (CLI) | payer BC, SELFPAY ==
--- NOTE | ~2024-10-08 | MM_ITS ---
EXAMINATION: MM screening dusty BI w martha HISTORY: Screening TECHNIQUE: Craniocaudal and mediolateral oblique 3-D tomosynthesis images were obtained and synthetic 2-D images were generated. CAD analysis was submitted and interpreted. COMPARISON: No prior mammogram is available for comparison at this institution. BREAST PARENCHYMAL COMPOSITION: Not dense: There are scattered areas of fibroglandular density. FINDINGS: There is no evidence of suspicious mass, calcification, or architectural distortion to sugg est malignancy in either breast. There has been no suspicious interval change. IMPRESSION: 1. No mammographic evidence of malignancy. 2. Recommend routine screening mammography in one year. BI-RADS Category 1: Negative Reviewed, dictated and finalized at location A.
== END 2024-10-08 11:26 | disposition home or self-care (01) ==
LOC: MICIMG 11:26
PROVIDERS: PCP Nurse Practitioner Obstetrics & Gynecology; Visit Provider Nurse Practitioner Obstetrics & Gynecology
DX: Z12.31 Encounter for screening mammogram for malignant neoplasm of breast (principal); N95.1 Menopausal and female climacteric states
CPT/HCPCS: 77063; 77067

== ENCOUNTER 2024-12-25 07:29 | Outpatient (CLI) | payer BC, SELFPAY ==
--- NOTE | ~2024-12-25 | MR_ITS ---
MRI of the cervical spine Clinical History: Neck pain Technique: Axial T2-weighted and gradient images, and sagittal T1-weighted, T2-weighted, and STIR katherine ges were acquired. Findings: There is mild reversal of the normal cervical lordosis. No fracture or subluxation seen. No bone marrow signal abnormality seen. No significant disc bulge or herniation seen at any cervical level. There are minimal facet joint deg enerative changes. No spinal canal stenosis or neural foraminal narrowing seen in the cervical spine. No abnormal signal seen in the spinal cord. Paravertebral soft tissues are unremarkable. Impression: Minimal degenerative change, as above. Reviewed, dictated and finalized at location M. Impression: Minimal degenerative change, as above.
--- NOTE | ~2024-12-25 | MR_ITS ---
MRI of the brain Clinical History: Migraine Technique: Axial and sagittal T1-weighted images were acquired. These were followed by axial T2-weigh migel, diffusion weighted, gradient, and FLAIR images. Findings: No abnormal signal seen in the brain parenchyma. No acute infarct, intracranial hemorrhage or mass lesion. Ventricles and subarachnoid spaces are unremarkable. Orbits are unremarkable. Paranasal sinuses and m astoids are clear. Major intrarenal flow voids are intact. Sagittal midline structures are intact. IMPRESSION: Normal exam. Reviewed, dictated and finalized at location M. IMPRESSION: Normal exam.
== END 2024-12-25 07:30 | disposition home or self-care (01) ==
LOC: MICIMG 07:31
PROVIDERS: PCP Nurse Practitioner Gerontology; Visit Provider Nurse Practitioner Gerontology
DX: G43.909 Migraine, unspecified, not intractable, without status migrainosus (principal)
CPT/HCPCS: 70551; 72141

== ENCOUNTER 2025-01-17 11:51 | Emergency (ER) | payer BC, SELFPAY ==
--- NOTE | ~2025-01-17 | XR_ITS ---
XR abdomen/kub 1V 01/17/2025 12:17 Indication: Upper abdominal pain Procedure: KUB Comparison: No prior studies for comparison. Findings: There are bilateral renal stones. Nonobstructive bowel gas pattern. No acute osseous abnorm ality. Impression: 1: Bilateral nephrolithiasis. Reviewed, dictated and finalized at location A. Impression: 1: Bilateral nephrolithiasis.
[2025-01-17 11:56] VITALS: BP 139/89; PULSE 99; RESP 16; TEMP 36.4; O2SAT 100
[2025-01-17 12:24] LABS: EDUAAPPEAR Clear; EDUABILI Negative (Negative); EDUABLOOD Negative (Negative); EDUACOLOR1 Yellow; EDUAGLUCOSE Negative (Negative); EDUAKETONE Negative (Negative); EDUALEUKO Negative (Negative); EDUANITRATE Negative (Negative); EDUAPH 7.5; EDUAPROTEIN 1+ (Negative); EDUASPGRAVITY 1.020; EDUAUROBILI 1.0
--- NOTE | 2025-01-17 12:38 | ED_ITS ---
HPI - Abdominal Pain General Chief Complaint: Abdominal Pain Stated Complaint: left abdominal pain Time Seen by Provider: 01/17/25 12:05 Source: patient Mode of arrival: ambulatory Limitations: no limitations History of Present Illness HPI narrative: Lo is a 39-year-old female patient presenting to the clinic today with complaints of left upper quadrant/left lower quadrant abdominal pain x 12 days. Also reporting some associated nausea without vomiting. Pain is worse approximately 15-30 minutes after eating. Pain is a sharp pain and comes and goes. States the pain radiates into her back. Reporting some urinary frequency without burning or urgency. Last bowel movement was this morning and normal for the patient. No blood in her stool. History of peptic ulcers, kidney stones, and constipation. History of appendectomy. Colonoscopy 2 years ago-patient states it was bad as she had ulcers for gastrointestinal system. No history/diagnosis of ulcerative colitis or Crohn's. Denies any recent weight loss. Related Data Home Medications ?Medication ?Instructions ?Recorded ?Confirmed ?Last Taken ?Type cholecalciferol (vitamin D3) 50 50 mcg PO DAILY 08/13/24 01/17/25 Unknown History mcg (2,000 unit) capsule multivitamin (Daily Multi-Vitamin 1 tablet PO DAILY 08/13/24 01/17/25 Unknown History tablet) omega-3 360 sd-vpg-moy-fish 360 cap PO DAILY 08/13/24 01/17/25 Unknown History oil-vitamin D3 12.5 mcg capsule riboflavin (vitamin B2) 25 mg 25 mg PO DAILY 08/13/24 01/17/25 Unknown History tablet galcanezumab-gnlm 120 mg/mL 120 mg subcut MONTHLY 01/17/25 01/17/25 Unknown History subcutaneous pen injector (Emgality Pen) Allergies Allergy/AdvReac Type Severity Reaction Status Date / Time amoxicillin Allergy Unknown Unknown Verified 01/17/25 12:00 cefaclor Allergy Unknown Unknown Verified 01/17/25 12:00 Penicillins Allergy Unknown Unknown Verified 01/17/25 12:00 Review of Systems Review of Systems: Pertinent positives per HPI. Patient denies any fever, chills, rash, headache, visual changes, dizziness, cough, runny nose, sore throat, shortness of breath, chest pain, palpitations, nausea, vomiting, diarrhea, constipation. PMFSH Past Medical History Medical History Stomach ulcer IBS (irritable bowel syndrome) GERD (gastroesophageal reflux disease) Anxiety Surgical History Surgical History History of surgery on arm L nerve surgery and a broken arm History of tonsillectomy H/O shoulder surgery [place] teeth extracted H/O tubal ligation Hx of abdominal hysterectomy R Ovary Removed Hx of dilation and curettage History of endometrial ablation Hx of section History of colposcopy Hx of appendectomy Family History Family History Father Depression Hypertension Cerebrovascular accident Family history of kidney disease Diabetes mellitus Heart disease Mother Depression Cervical cancer Sibling Thyroid disease Grandparent Depression Breast cancer Other Family history of malignant neoplasm of breast in first degree relative Social History Social History Smoking status: Never smoker Second hand tobacco smoke exposure: No Alcohol intake: current Substance use: never Comments At the time of my signature, I reviewed and agree with the nursing past medical, surgical, social, and family history. There is no relevant family history pertinent to the patient complaint. Exam Narrative: General: Well-developed, well nourished, in no apparent distress. Head: Normocephalic, atraumatic. Cardio: Regular rate and rhythm, s1 and s2 normal, no murmur appreciated. Resp: Clear to auscultation bilaterally, no rhonchi, rales, wheezing or rubs. Abdomen: Soft, pliable, bowel sounds present in all quadrants, right lower q uadrant, left upper quadrant, and left lower quadrant tender to palpation, no organomegly, no CVAT tenderness. Course Course Emergency Course: Portions of this record may have been created with voice recognition software. Level of Care: Express Care Visit Vital Signs Vital signs: Vital Signs Temperature 36.4 C L 01/17/25 11:56 Pulse Rate 99 01/17/25 11:56 Respiratory Rate 16 01/17/25 11:56 Blood Pressure 139/89 01/17/25 11:56 Pulse Oximetry 100 01/17/25 11:56 Oxygen Delivery Room Air 01/17/25 11:56 Temperature 36.4 C L 01/17/25 11:56 Pulse Rate 99 01/17/25 11:56 Respiratory Rate 16 01/17/25 11:56 Blood Pressure 139/89 01/17/25 11:56 Pulse Oximetry 100 01/17/25 11:56 Oxygen Delivery Room Air 01/17/25 11:56 Vital signs reviewed Transfer Transfered to: [facility] Transportation: Other (Private car) Transfer rationale: LUQ/LLQ abdomen pain Accepting physician: Blake MDM - Abdominal Pain MDM Narrative Medical decision making narrative: At the time of visit patient is resting comfortably on the exam table. Patient appears to be nontoxic. Complaints of left upper quadrant/left lower quadrant abdominal pain x 12 days. Also reporting some associated nausea without vomiting. Pain is worse approximately 15-30 minutes after eating. Pain is a sharp pain and comes and goes. States the pain radiates into her back. Reporting some urinary frequency without burning or urgency. Last bowel mov ement was this morning and normal for the patient. No blood in her stool. History of peptic ulcers, kidney stones, and constipation. History of appendectomy. Colonoscopy 2 years ago-patient states it was bad as she had ulcers for gastrointestinal system. No history/diagnosis of ulcerative colitis or Crohn's. Denies any recent weight loss. Urine dip and a KUB x-ray was performed Labs: Urinalysis positive for 1+ protein. No leukocytes, blood, or nitrates. Diagnostics: KUB shows bilateral kidney stones. No sign acute abdomen pathology Plan: Offer to treat patient for peptic ulcer disease as she has a history of gastric ulcers and prescribed Protonix and Carafate, however I cannot rule out other causes of patient's symptoms such as pancreatitis or cholecystitis. Offer to send patient to the emergency room for further evaluation. Patient would like to go to [facility] emergency room. Report was called to Marleny FRIAS for continuity of care she accepts patient for transfer. Differential Diagnosis Differential diagnosis: Likely abdominal pain, calculus of kidney, constipation, diverticulitis, endometriosis, gastroenteritis, pancreatitis, small bowel obstruction and other (GERD, Crohn's, ulcerative colitis, peptic ulcer disease) Lab Data Labs: Lab Results 01/17/25 Range/Units 12:10 POC Urine Color Yellow POC Urine Clarity Clear POC Urine pH 7.5 POC Ur Specif [place] 1.020 POC Urine Protein 1+ (Negative) POC Ur Glucose (UA) Negative (Negative) POC Urine Ketones Negative (Negative) POC Urine Blood Negative (Negative) POC Urine Nitrite Negative (Negative) POC Urine Bilirubin Negative (Negative) POC Urine Urobilinogen 1.0 POC U Leukocyte Esteras Negative (Negative) Imaging Data Radiologist's impression: ITS Impressions Abdomen X-Ray 01/17/25 12:19 Impression: 1: Bilateral nephrolithiasis. Discharge Plan Discharge Clinical Impression: Left upper quadrant abdominal pain Patient Disposition: Acute Care Hospital Condition: Stable Patient Language: Hebrew Prescriptions: No Action Emgality Pen 120 mg/mL pen injector 120 mg SUBCUT MONTHLY cholecalciferol (vitamin D3) 50 mcg (2,000 unit) capsule 50 mcg PO DAILY riboflavin (vitamin B2) 25 mg tablet 25 mg PO DAILY io-1-ode-epa-fish oil-vit D3 360 mg- 12.5 mcg capsule 360 cap PO DAILY multivitamin [Daily Multi-Vitamin] Tablet 1 tablet PO DAILY bupropion HCl [Wellbutrin XL] 150 mg tablet extended release 24 hr 150 mg PO QAM Qty: 90 2RF Follow-up/Referrals: UNKNOWN,DOCTOR [Primary Care Provider] - Time of Disposition: 12:40 Quality NIHSS Nursing Documentation ED NIHSS nursing documentation: reviewed/agree
== END 2025-01-17 12:40 | disposition short-term general hospital (02) ==
PROVIDERS: Emergency Provider Nurse Practitioner Family
DX: R10.12 Left upper quadrant pain (principal); K21.9 Gastro-esophageal reflux disease without esophagitis; F41.9 Anxiety disorder, unspecified
CPT/HCPCS: 74018; 81003; 99213; G0463

== ENCOUNTER 2025-01-17 12:58 | Emergency (ER) | payer BC, SELFPAY ==
--- NOTE | ~2025-01-17 | US_ITS ---
EXAM: ABDOMEN ULTRASOUND HISTORY: upper quadrant pain COMPARISON: Reference is made to a CT examination of the abdomen and pelvis performed approximately 9 0 minutes earlier FINDINGS: LIVER: The liver is increased in echogenicity and borderline increased in size. The portal vein is patent demonstrating phasic flow in the hepatopedal direction. GALLBLADDER: No stones are identified within the gallbladder, which is otherwise unremarkable. No gallbladder wall thickening or pericholecystic fluid. BILE DUCTS: Common bile duct measures 1.5mm. PANCREAS: Limited evaluation of the pancreas secondary to overlying bowel gas IMPRESSION: Limited evaluation of the pancreas secondary to overlying bowel gas Borderline enlargement of a fatty liver. Phasic flow within the portal vein. No stones within the gallbladder Reviewed, dictated and finalized at location A.
--- NOTE | ~2025-01-17 | CT_ITS ---
CLINICAL INDICATION: Left-sided abdominal pain COMPARISON: 06/27/2022. TECHNIQUE: Multiple contiguous axial images of the abdomen and pelvis were performed following the ad ministration of with 100 mL Omnipaque-350 intravenous contrast The dose-length product (DLP) was 433.58 mGy-cm. Automated exposure control and iterative reconstruction technique were employed. FINDINGS/OBSERVATIONS: Visualized lower thorax: The bilateral lung bases are clear. The heart is of normal size, without pericardial effusion. Small hiatal hernia is present. Liver: The liver demonstrates homogeneous enhancement and is borderline enlarged measuring 19 cm in longitud inal dimension. A Elena's lobe is present. Gallbladder and biliary system: The gallbladder is only minimally distended, and otherwise unremarkable. Pancreas: The pancreas enhances homogeneously without ductal dilatation. Spleen: The spleen enhances homogeneously and is not enlarged measuring 8 cm in longitudinal dimension. Kidneys: Redemonstration of a 3 mm nonobstructing calculus within the interpolar region of the left k idney The remainder of the bilateral kidneys otherwise enhance symmetrically without hydronephrosis or nghia tional renal calculi. Adrenal glands: Unremarkable. Gastrointestinal tract: Irregular 12 x 17 mm focus of decreased attenuation along the posterior wall of the distal stomach for which nonemergent follow-up with direct visualization is recommended, as a gastric ulcer may have a similar appearance. Fecal stasis within the rectum and cecum. Infiltration of the mesentery adjacent to the superior mesenteric vein is identified, unchanged from 06/27/2022, a nonspecific finding. Appendix: Surgically absent - staple line along the posterior wall of the cecum. Vasculature: Unremarkable. Lymph nodes: No pathologically enlarged or morphologically suspicious lymph nodes within the retroperitoneum or at the root of the mesentery. Pelvic structures: The bladder is distended, and otherwise unremarkable. The uterus is surgically absent. Involuting cysts within the left ovary measuring 15 and 13 mm, respectively. The right ovary is not visualized. Body wall and musculoskeletal: Small fat-containing umbilical hernia. No significant degenerative disease within the lower thoracic or lumbosacral spine. IMPRESSION: Borderline enlargement of the liver. Nonobstructing left renal calculi Irregular 12 x 17 mm focus of decreased attenuation along the posterior wall of the distal stomach fo r which nonemergent follow-up with direct visualization is recommended. Two small involuting cysts within the left ovary. Reviewed, dictated and finalized at location A. IMPRESSION: Borderline enlargement of the liver. Nonobstructing left renal calculi Irregular 12 x 17 mm focus of decreased attenuation along the posterior wall of the distal stomach for which nonemergent follow-up with direct visualization i s recommended. Two small involuting cysts within the left ovary.
[2025-01-17 13:06] VITALS: BP 132/85; PULSE 98; RESP 16; TEMP 36.6; O2SAT 100
--- OUTSIDE RECORDS SUMMARY | 2025-01-17 13:20 | XMS_ITS | Clinical Summary ---
Author Organization [facility] Address [address] [place] [address] [place] [address] Care Team Providers Care Retail Commission Sales Associate Name Role Phone Unavailable Primary Care Provider Unavailabl e Encounters Date Type Department Care Team Description 01/11/2025 External Device Data STL ABSTRACTION Provider, Abstract 12/22/2024 External Device Data STL ABSTRACTION Provider, Abstract 12/22/2024 External Device Data STL ABSTRACTION Provider, Abstract 11/23/2024 External Device Data STL ABSTRACTION Provider, Abstract 11/09/2024 External Device Data STL ABSTRACTION Provider, Abstract 11/02/2024 External Device Data STL ABSTRACTION Provider, Abstract 10/27/2024 External Device Data STL ABSTRACTION Provider, Abstract 10/26/2024 External Device Data STL ABSTRACTION Provider, Abstract [...] Health Maintenance Due Date Last Done Comments HPV VACCINES (1 - 3-dose series) 02/19/1999 DTAP/TDAP/TD VACCINES (1 - Tdap) 02/19/2003 HEPATITIS B VACCINES (1 of 3 - 19+ 3-dose series) 02/07 HPV/Cotest (21-29) 02/19/2005 CERVICAL CANCER SCREENING 02/19/2014 HPV/Cotest (30-65) 02/19/2014 PAP SMEAR 02/19/2014 BREAST CANCER SCREENING 2024 INFLUENZA VACCINE (#1) 2025
--- OUTSIDE RECORDS SUMMARY | 2025-01-17 13:20 | XMS_ITS | Encounter Summary ---
Author Organization [facility] Address [address] [place] [address] Care Team Providers Care Bakery Associate Name Role Phone Bailee Emanuel [facility] Primary Care Provider + Encounter Details Date Type Department Care Team (Late st Contact Info) Description 07/01/2022 Control Medical Technology Message Enc [facility] Medical Group Family & Internal Medicine [facility] [address] [place] [address] [place] [address] [facility] [address] [place] [address] Dicyclomine Update Social History Tobacco [...] Coronavirus/COVID-19? No / Unsure 06/25/2022 3:47 PM EXTRUSION PRESS ADJUSTER documented as of this encounter Plan of Treatment Not on file documented as of this encounter Visit Diagnoses Not on filedocumented in this encounter Additional Health Concerns Assessment Noted Time PHQ-9 Depression Total Score: 11 022 11:03 AM EXTRUSION PRESS ADJUSTER documented as of this encounter Care Teams Bakery Associate Relationship Specialty Start Date End Date Bailee Emanuel FNP- PCP - General Nurse Practitioner Family 05/16/2207/11 documented as of this encounter
--- OUTSIDE RECORDS SUMMARY | 2025-01-17 13:20 | XMS_ITS | Encounter Summary ---
Author Organization [facility] Healthcare Address [address] [place] [address] Care Team Providers Care Managed Care Director Name Role Phone No, Physician Primary Care Provider [phone] Encounter Details Date Type Department Care Team (Late st Contact Info) Description 02/06/2021 Telephone [facility] [address] [place] [id number] Mahad Jones, RT Social History Tobacco Use [...] on file Legal Sex Female 6:13 AM SQUIRREL MAN Gender Identity Not on file Sexual Orientation [...] on filedocumented in this encounter Care Teams Managed Care Director Relationship Specialty Start Date End Date No, Physician PCP - General 09/12/18 documented as of this encounter
--- OUTSIDE RECORDS SUMMARY | 2025-01-17 13:20 | XMS_ITS | Clinical Summary ---
Author Organization [facility] Address [address] [place] [address] Care Team Providers Care Quality Rep Name Role Phone Unavailable Primary Care Provider [...] Active butalbital-aceta minophen-caffein e-codeine (FIORICET WITH CODEINE) 77-249-25-30 MG capsuleIndicatio ns:Acute Pain < 7 Day Supply Take 1 capsule by mouth every 4 (four) hours as needed for Headaches. Indications: Acute Pain < 7 Day Supply 30 capsule 12/23/2022 Active Active Problems Problem Noted Date Diagnosed Date Chronic diarrhea 08/13/2022 Overview (08/13/2022): Added automatically from request for surgery [id number] Oropharyngeal dysphagia 08/13/2022 Overview (08/13/2022): Added automatically from request for surgery [id number] Instability of left shoulder joint 05/25/2019 Overview (05/20/2022): Added automatically from request for surgery [id number] Ulnar neuropathy of left upper extremity 019 Overview (05/20/2022): Added automatically from request for surgery [id number] Ulnar nerve entrapment 01/03/2015 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 Pain in shoulder 01/02/2015 Resolved Problems Problem Noted Date Diagnosed Date Resolved Date Hypotension 01/02/2015 01/14/2023 Immunizations Immunization Administration Dates Next Due Fluzone 6 Months+ [...] 12:59 PM CDT Height 177.8 cm (5' 10) 12/23/2022 12:59 PM CDT Body Mass Index 25.11 12/23/2022 12:59 PM CDT Plan of Treatment Health Maintenance Due Date Last Done Comments Hepatitis C 02/19/2002 DTaP, Tdap and Td Vaccines ( 1 - Tdap) 02/19/2003 Hepatitis B Vaccines (1 of 3 - 19+ 3-dose series) 02/19/2003 HPV Vaccines (1 - 3-dose SCD M series) 02/19/2011 Annual Physical 05/20/2023 05/20/2022 COVID-19 Vaccine (3 - 2023-2 5 season) 2024 02/22/2021, 01/18/2021 Mammogram Screening 2024 PHQ-2 (Physician [place]) 06/09/2024 Meningococcal B Vaccine Aged Out No l onger eligible based on patient's age to complete this topic Meningococcal Vaccine Aged Out No laz aaron eligible based on patient's age to complete this topic Pneumococcal Vaccine: Pediatrics (0 to 5 Years) and At-Risk Patients (6 to 49 Years) Aged Out No longer eligible b ased on patient's age to complete this topic RSV Immunizations Under 20 Months Aged Out No longer eligible b ased on patient's age to complete this topic Insurance [facility]
--- OUTSIDE RECORDS SUMMARY | 2025-01-17 13:20 | XMS_ITS | Encounter Summary ---
Author Organization [facility] Address [address] [place] [address] Care Team Providers Care Is Technician Name Role Phone Bailee Emanuel [facility] Primary Care Provider + Encounter Details Date Type Department Care Team (Late st Contact Info) Description 07/29/2022 [email or web address] Message Enc [facility] Medical Group Family & Internal Medicine [address] [address] Bailee Emanuel [place] [address] [place] [address] C. Diff Test Social History [...] Coronavirus/COVID-19? No / Unsure 07/25/2022 1:29 PM PREFITTER documented as of this encounter Progress Notes * Lola Viramontes RN - 07/30/2022 8:26 AM CST Noted. ITTER documented in this encounter Plan of Treatment Not on file documented as of this encounter Visit Diagnoses Not on filedocumented in this encounter Additional Health Concerns Assessment Noted Time PHQ-9 Depression Total Score: 3 07/25/19 23 2:07 PM PREFITTER documented as of this encounter Care Teams Is Technician Relationship Specialty Start Date End Date Bailee Emanuel FNP- PCP - General Nurse Practitioner Family 05/16/2207/11 documented as of this encounter
--- OUTSIDE RECORDS SUMMARY | 2025-01-17 13:20 | XMS_ITS | Clinical Summary ---
Author Organization [facility] Address [facility] [place] [address] Care Team Providers Care Frit Coater Name Role Phone No, Physician Primary Care Provider [phone] Allergies Active Allergy Reactions Criticality Noted Date Comments Amoxicillin Hives High Reaction: Hives, Cefaclor Hives High Reaction: Hives, Levonorgestrel-Ethinyl Estrad Other (See comments) Low 09/25/2022 Itchy eyes, runny nose Penicillins Hives High Reaction: Hives, Medications ibuprofen (ibuprofen) 200 mg tab/cap Take by mouth every 6 (six) hours as needed for pain Active fluticasone propionate (FLONASE) 50 mcg/actuation nasal spray Administer 2 sprays into each nostril daily as needed for rhinitis 9 Active docusate sodium (COLACE) 100 mg capsuleIndicat ions:constipat ion Take 1 capsule (100 mg total) by mouth 2 (two) times a day as needed for constipation (while taking narcotics) 30 capsule 1 9 Active oxyCODONE (ROXICODONE) 5 mg immediate release tabletIndicati ons:Pain 1-2 tablets q4-6 hours PRN pain 40 tablet [address] (CYMBALTA) 30 mg capsule TAKE ONE CAPSULE BY MOUTH DAILY 30 capsule [address] (CYMBALTA) 20 mg capsule Take 1 po daily for 1 week then 1 every other day for one week then off 11 capsule 0 Active buPROPion XL (WELLBUTRIN XL) 150 mg 24 hr tablet Take 1 tablet (150 mg total) by mouth every morning 5 Active butalbital-marcie taminophen-caf feine-codeine (FIORICET WITH CODEINE) 91-958-90-30 mg per capsule Take 1 capsule by mouth every 4 (four) hours as needed [address] (PROTONIX) 40 mg EC tablet Take 1 tablet (40 mg total) by mouth daily 3 Active ubrogepant (UBRELVY) 100 mg tablet Take 1 tablet (100 mg total) by mouth once as needed for migraine May repeat dose once in 2 hours if no relief. Do not exceed 2 doses in 24 hours. 10 tablet 5 5 Active galcanezumab-g nlm 120 mg/mL pen injector Inject 120 mg under the skin every 30 (thirty) days 1 mL 5 5 Active galcanezumab-g nlm 120 mg/mL pen injector Inject 240 mg under the skin every 30 (thirty) days 2 mL 5 01/07/20 25 Active Problems Problem Noted Date Diagnosed Date Migraine without status migrainosus, not intract able 12/07/2024 Neck pain 12/07/2024 Instability of left shoulder joint 05/25/2019 Overview (05/25/2019): Added automatically from request for surgery [id number] Ulnar neuropathy of left upper extremity 019 Overview (10/17/2018): Added automatically from request for surgery [id number] Ulnar nerve entrapment 01/03/2015 Hypotension 01/02/2015 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 Pain in shoulder 01/02/2015 Encounters Date Type Department Care Team Description 12/13/2024 Telephone [facility] Neurology [address] [place] [phone] Opal Rajput NP Additional Services Or Orders (MRI ORDER) 12/08/2024 Telephone [facility] Neurology [address] [place] [address] [place] [phone] Opal Rajput NP Prior Auth (Emgality 120 mg) 12/07/2024 8:00 AM CDT Office Visit [facility] Medical [facility] Neurology [address] [place] [phone] Opal Rajput NP Migraine without status migrainosus, not intractable, unspecified migraine type (Primary Dx); Neck pain from Last 3 Months Surgical History Surgery Date Site/Laterality Comments NV APPENDECTOMY Appendectomy - (Added by TW Conv) SINUS SURGERY Sinus Surgery - (Added by TW Conv) NV DELIVERY ONLY Section - (Added by TW Conv) NV LIG/TRNSXJ FLP TUBE ABDL/VAG APPR UNI/BI Tubal Ligation - (Added by TW Conv) NV TONSILLECTOMY PRIMARY/SECONDARY <AGE 12 Tonsillectomy - (Added [...] History of hypotension - (Ad ded by Conv) Personal history of other di seases of the female genital tract History of ovarian cyst - (A dded by Conv) Fatigue Ear pain, left Drainage from nose Jaw pain Arthritis Neck pain Family History Medical History Relation Name Comments Diabetes type I Father Family histo ry of type 1 diabetes mellitus - (Added by Conv) Heart attack Father Heart disease Father [...] on file Legal Sex Female 6:13 AM PET COUNSELOR Gender Identity Not on file Sexual Orientation Straight 09/21/2019 3: 08 PM CDT Obstetrics History Last Filed Vital Signs Vital Sign Reading Time Taken Comments Blood Pressure 106/62 12/07/2024 7:56 AM CDT Pulse 74 12/07/2024 7:56 AM CDT Temperature 37.1 C (98.8 F) 06/07/2019 2:07 PM PET COUNSELOR Respiratory Rate 20 02/08/2021 3:44 PM CDT Oxygen Saturation 99% 06/07/2019 2:55 PM PET COUNSELOR Inhaled Oxygen Concentration - - Weight 82.1 kg (181 lb) 12/07/2024 7:56 AM CDT Height 177.8 cm (5' 10) 12/07/2024 7:56 AM CDT Body Mass Index 25.97 12/07/2024 7:56 AM CDT Plan of Treatment Health Maintenance Due Date Last Done Comments Breast Cancer Screening-Mammogram 1984 Depression Screening 1984 Hepatitis C Screening 1984 DTaP/Tdap/Td Vaccine (1 - Tdap) 02/19/1995 Varicella Vaccines (1 of 2 - 13+ 2-dose series) 02/19/1997 Hepatitis B Screening 02/19/2002 Regular Well Visit/Exam 18-64 02/19/2002 HPV Vaccines (1 - 3-dose SCD M series) 02/19/2011 Covid-19 Vaccine (2 - 2023-2 5 season) 2024 01/18/2021 Influenza Vaccine (#1) 2025 05/20/2022 Pneumococcal vaccine <65 Aged Out No longer eligible based on patient's age to complete this topic Goals Goal Patient Goal Type Associated Problems [...] as needed Medical Devices Implanted Type Area Hemstitching Machine Operator Device Identifier Shelf Expiration Date Model / Serial / Lot [employer] Ar-1938bc Suturetak Fiberwire Arthrex 3mm 12.7mm Knotless Cruciate Ligament - Sn/A - [id number] Implanted:Qt y: 1 on 06/07/2019 by Cayden Suosa MD at [facility] Other - see comments Left: Shoulder [employer] [id number] 04/08/2021 AR-1938B C / N/A / [id number] Description:Brought in from the [place] [employer] Ar-1938bc Suturetak Fiberwire Arthrex 3mm 12.7mm Knotless Cruciate Ligament - Sn/A - [id number] Implanted:Qt y: 1 on 06/07/2019 by Cayden Sousa MD at [facility] Other - see comments Left: Shoulder [employer] [id number] 11/06/2020 AR-1938B C / N/A / [id number] Description:Brought in from the [place] [employer] Ar-1938bc Suturetak Fiberwire Arthrex 3mm 12.7mm Knotless Cruciate Ligament - Sn/A - [id number] Implanted:Qt y: 1 on 06/07/2019 by Cayden Sousa MD at [facility] Other - see comments Left: Shoulder [employer] [id number] 04/08/2021 AR-1938B C / N/A / [id number] Description:Brought in [place] the [place] Screw Screw Left: Shoulder Insurance [facility] fake company [place] Care Teams Frit Coater Relationship Specialty Start Date End Date No, Physician PCP - General 09/12/18
[2025-01-17 13:27] LABS: Hematocrit 45.5 % (37.0-47.0); Hemoglobin 15.0 g/dL (12.0-15.0); Immature Granulocyte Percent A 0.4 % (0-0.5); Lymphocytes Absolute Auto 1.28 K/mm3 (0.9-3.2); Mean Corpuscular HGB Conc 33.0 g/dl (32-36); Mean Corpuscular Hemoglobin 28.3 pg (26-34); Mean Corpuscular Volume 85.8 fl (80-100); Nucleated Red Blood Cells Absolute Auto 0.000 K/mm3 (0.0-0.012); Nucleated Red Blood Cells Perc 0.0 % (0.0-0.2); Platelet Count Result 259 k/mm3 (150-375); Red Blood Count 5.30 M/mm3 (4.2-5.4); White Blood Count 7.0 K/mm3 (4.5-10.0)
[2025-01-17 13:35] LABS: Add Urine Microscopic? YES; Appearance Urine Clear (Clear); Glucose Urine UA Negative (Negative); Leukocyte Esterase Ur Negative LEU/UL (Negative); Nitrate Urine Negative (Negative); Non Pathogenic Casts 0-2; Specific Grav Ur 1.018 (1.001-1.035)
[2025-01-17 13:47] LABS: Alanine Aminotransferase 26 U/L (6-35); Albumin Level 4.4 g/dL (3.5-5.1); Alkaline Phosphatase 67 U/L (38-126); Anion Gap 10 mmol/L (4-12); Aspartate Amino Transferase 29 U/L (14-36); Bilirubin,Total 0.4 mg/dL (0.2-1.3); Blood Urea Nitrogen 13 mg/dL (7-17); Calcium 9.5 mg/dL (8.4-10.2); Carbon Dioxide 24 mmol/L (22-30); Chloride 102 mmol/L (98-107); Estimated CRCL calculation 92 ml/min; Estimated Glomerular Filt Rate > 60; Glucose 107 mg/dL (65-110); Lipase 260 U/L (23-300); Potassium 3.9 mmol/L (3.4-5.0); Sodium 136 mmol/L (137-145); Total Protein 7.4 g/dL (6.3-8.2)
--- OUTSIDE RECORDS SUMMARY | 2025-01-17 14:46 | XMS_ITS | Encounter Summary ---
Author Organization [facility] Healthcare Address [address] [place] [address] Care Team Providers Care Practice Physician Name Role Phone No, Physician Primary Care Provider [phone] Encounter Details Date Type Department Care Team (Late st Contact Info) Description 02/06/2021 Telephone [facility] [address] [place] [id number] Mahad Jones, RT Social History Tobacco Use [...] on file Legal Sex Female 6:13 AM INSPECTOR PAPER PRODUCTS Gender Identity Not on file Sexual Orientation [...] on filedocumented in this encounter Care Teams Practice Physician Relationship Specialty Start Date End Date No, Physician PCP - General 09/12/18 documented as of this encounter
--- OUTSIDE RECORDS SUMMARY | 2025-01-17 14:46 | XMS_ITS | Encounter Summary ---
Author Organization [facility] Address [address] [place] [address] Care Team Providers Care Privacy Specialist Name Role Phone Bailee Emanuel [facility] Primary Care Provider + Encounter Details Date Type Department Care Team (Late st Contact Info) Description 07/01/2022 [employer] Message Enc [facility] Medical Group Family & Internal Medicine [facility] [address] [place] [address] [place] [address] [facility] [address] [place] [address] Dicyclomine Update Social History Tobacco [...] Coronavirus/COVID-19? No / Unsure 06/25/2022 3:47 PM ZIPPER REPAIRER documented as of this encounter Plan of Treatment Not on file documented as of this encounter Visit Diagnoses Not on filedocumented in this encounter Additional Health Concerns Assessment Noted Time PHQ-9 Depression Total Score: 11 022 11:03 AM ZIPPER REPAIRER documented as of this encounter Care Teams Privacy Specialist Relationship Specialty Start Date End Date Bailee Emanuel FNP- PCP - General Nurse Practitioner Family 05/16/2207/11 documented as of this encounter
--- OUTSIDE RECORDS SUMMARY | 2025-01-17 14:46 | XMS_ITS | Clinical Summary ---
Author Organization [facility] Address [address] [place] [address] [place] [address] Care Team Providers Care Flaker Tender Name Role Phone Unavailable Primary Care Provider [...]
--- OUTSIDE RECORDS SUMMARY | 2025-01-17 14:46 | XMS_ITS | Encounter Summary ---
Author Organization [facility] Address [address] [place] [address] Care Team Providers Care College Recruiter Name Role Phone Bailee Emanuel [facility] Primary Care Provider + Encounter Details Date Type Department Care Team (Late st Contact Info) Description 07/29/2022 [employer] Message Enc [facility] Medical Group Family & Internal Medicine [address] [address] Bailee Emanuel [place] [id number] [place] [address] C. Diff Test Social History [...] Coronavirus/COVID-19? No / Unsure 07/25/2022 1:29 PM PIGMENT FURNACE TENDER documented as of this encounter Progress Notes * Lola Viramontes RN - 07/30/2022 8:26 AM CST Noted. ENT FURNACE TENDER documented in this encounter Plan of Treatment Not on file documented as of this encounter Visit Diagnoses Not on filedocumented in this encounter Additional Health Concerns Assessment Noted Time PHQ-9 Depression Total Score: 3 07/25/19 23 2:07 PM PIGMENT FURNACE TENDER documented as of this encounter Care Teams College Recruiter Relationship Specialty Start Date End Date Bailee Emanuel FNP- PCP - General Nurse Practitioner Family 05/16/2207/11 documented as of this encounter
--- OUTSIDE RECORDS SUMMARY | 2025-01-17 14:46 | XMS_ITS | Clinical Summary ---
Author Organization [facility] Address [facility] [place] [address] Care Team Providers Care Wax Machine Operator Name Role Phone No, Physician Primary Care Provider [phone] Allergies Active Allergy Reactions Criticality Noted Date [...] Active butalbital-marcie taminophen-caf feine-codeine (FIORICET WITH CODEINE) 48-097-59-30 mg per capsule Take 1 capsule by [...] (05/25/2019): Added automatically from request for surgery [id number] Ulnar neuropathy of left upper extremity 019 Overview (10/17/2018): Added automatically from request for surgery [id number] Ulnar nerve entrapment 01/03/2015 Hypotension 01/02/2015 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 Pain in shoulder 01/02/2015 Encounters Date Type Department Care Team Description 12/13/2024 Telephone [facility] Neurology [address] [place] [phone] Opal Rajput NP Additional Services Or Orders (MRI ORDER) 12/08/2024 Telephone [facility] Neurology [address] [place] [address] [place] [phone] Opal Rajput NP Prior Auth (Emgality 120 mg) 12/07/2024 8:00 AM CDT Office Visit [facility] Medical Group Neurology [address] [place] [phone] Opal Rajput NP Migraine without status migrainosus, not intractable, unspecified migraine type (Primary Dx); Neck pain from Last 3 Months Surgical History Surgery Date Site/Laterality Comments [place] [...] on file Legal Sex Female 6:13 AM VACCINE SPECIALIST Gender Identity Not on file Sexual Orientation Straight 09/21/2019 3: 08 PM CDT Obstetrics History Last Filed Vital Signs Vital Sign Reading Time Taken Comments Blood Pressure 106/62 12/07/2024 7:56 AM CDT Pulse 74 12/07/2024 7:56 AM CDT Temperature 37.1 C (98.8 F) 06/07/2019 2:07 PM VACCINE SPECIALIST Respiratory Rate 20 02/08/2021 3:44 PM CDT Oxygen Saturation 99% 06/07/2019 2:55 PM VACCINE SPECIALIST Inhaled Oxygen Concentration - - Weight 82.1 [...] as needed Medical Devices Implanted Type Area Salad Counter Attendant Device Identifier Shelf Expiration Date Model / Serial / Lot [employer] Ar-1938bc Suturetak Fiberwire Arthrex 3mm 12.7mm Knotless Cruciate Ligament - Sn/A - [id number] Implanted:Qt y: 1 on 06/07/2019 by Cayden Sousa MD at [facility] Other - see comments Left: Shoulder [employer] [id number] 04/08/2021 AR-1938B C / N/A / [id number] Description:Brought in from the [place] [employer] Ar-1938bc Suturetak Fiberwire Arthrex 3mm 12.7mm Knotless Cruciate Ligament - Sn/A - [id number] Implanted:Qt y: 1 on 06/07/2019 by Cayden Sousa MD at [facility] Other - see comments Left: Shoulder [employer] [id number] 11/06/2020 AR-1938B C / N/A / [id number] Description:Brought in from the [place] [employer] Ar-1938bc Suturetak Fiberwire Arthrex 3mm 12.7mm Knotless Cruciate Ligament - Sn/A - [id number] Implanted:Qt y: 1 on 06/07/2019 by Cayden Sousa MD at [facility] Other - see comments Left: Shoulder [employer] [id number] 04/08/2021 AR-1938B C / N/A / [id number] Description:[place] in [place] Screw Scre[employer] Left: Shoulder Insurance [facility] [employer] [place] [employer] [place] Care Teams Wax Machine Operator Relationship Specialty Start Date End Date No, Physician PCP - General 09/12/18
--- OUTSIDE RECORDS SUMMARY | 2025-01-17 14:46 | XMS_ITS | Clinical Summary ---
Author Organization [facility] Address [address] [place] [address] Care Team Providers Care Dyehouse Worker Name Role Phone Unavailable Primary Care Provider [...] Active butalbital-aceta minophen-caffein e-codeine (FIORICET WITH CODEINE) 21-260-60-30 MG capsuleIndicatio ns:Acute Pain < 7 Day Supply Take 1 capsule by mouth every 4 (four) hours as needed for Headaches. Indications: Acute Pain < 7 Day Supply 30 capsule 12/23/2022 Active Active Problems Problem Noted Date Diagnosed Date Chronic diarrhea 08/13/2022 Overview (08/13/2022): Added automatically from request for surgery [id number] Oropharyngeal dysphagia 08/13/2022 Overview (08/13/2022): Added automatically from request for surgery [id number] Instability of left shoulder joint 05/25/2019 Overview (05/20/2022): Added automatically from request for surgery [id number] Ulnar neuropathy of left upper extremity 019 Overview (05/20/2022): Added automatically from request for surgery [id number] Ulnar nerve entrapment 01/03/2015 Brachial plexus neuropathy [...] 02/22/2021, 01/18/2021 Mammogram Screening 2024 PHQ-2 (Physician [place]) 06/09/2024 Meningococcal B Vaccine Aged Out No [...] patient's age to complete this topic Insurance [facility]
--- NOTE | 2025-01-17 14:53 | ED_ITS ---
HPI - Abdominal Pain General Chief Complaint: Abdominal Pain Stated Complaint: LUQ pain Time Seen by Provider: 01/17/25 13:56 History of Present Illness HPI narrative: Patient is a 39-year-old female presents to the ER with left upper quadrant abdominal pain. She reports the pain started approximately 12 days ago. She reports she recently started a new medication to treat her migraines called Emgality. Patient reports she noticed the symptoms worsening after she took the medication 12 days ago and again when she took the medication 3 days ago. She endorses back pain and increased urinary frequency. Patient denies any fevers, chest pain, shortness of breath. Her last bowel movement was this morning and it was normal for her. Patient endorses a history of a hysterectomy, kidney stones, and migraines. Related Data Home Medications ?Medication ?Instructions ?Recorded ?Confirmed ?Last Taken ?Type cholecalciferol (vitamin D3) 50 50 mcg PO DAILY 08/13/24 01/17/25 Unknown History mcg (2,000 unit) capsule multivitamin (Daily Multi-Vitamin 1 tablet PO DAILY 08/13/24 01/17/25 Unknown History tablet) omega-3 360 gq-gmj-quq-fish 360 cap PO DAILY 08/13/24 01/17/25 Unknown History oil-vitamin D3 12.5 mcg capsule riboflavin (vitamin B2) 25 mg 25 mg PO DAILY 08/13/24 01/17/25 Unknown History tablet galcanezumab-gnlm 120 mg/mL 120 mg subcut MONTHLY 01/17/25 01/17/25 Unknown History subcutaneous pen injector (Emgality Pen) Allergies Allergy/AdvReac Type Severity Reaction Status Date / Time amoxicillin Allergy Unknown Unknown Verified 01/17/25 12:00 cefaclor Allergy Unknown Unknown Verified 01/17/25 12:00 Penicillins Allergy Unknown Unknown Verified 01/17/25 12:00 Review of Systems 2 Review of Systems: All systems reviewed & are unremarkable except as noted in HPI and below PMFSH Past Medical History Medical History Stomach ulcer IBS (irritable bowel syndrome) GERD (gastroesophageal reflux disease) Anxiety Surgical History Surgical History History of surgery on arm L nerve surgery and a broken arm History of tonsillectomy H/O shoulder surgery [place] teeth extracted H/O tubal ligation Hx of abdominal hysterectomy R Ovary Removed Hx of dilation and curettage History of endometrial ablation Hx of section History of colposcopy Hx of appendectomy Family History Family History Father Depression Hypertension Cerebrovascular accident Family history of kidney disease Diabetes mellitus Heart disease Mother Depression Cervical cancer Sibling Thyroid disease Grandparent Depression Breast cancer Other Family history of malignant neoplasm of breast in first degree relative Social History Social History Smoking status: Never smoker Second hand tobacco smoke exposure: No Alcohol intake: current Substance use: never Exam 2 Narrative: GENERAL: Well appearing, well-nourished, non-toxic, in no acute distress. HEAD: Normocephalic, atraumatic. NECK: Supple. No adenopathy, no masses. RESPIRATORY: Airway patent, respirations nonlabored. Clear to auscultation bilaterally, no rales, rhonchi, wheezing. CARDIOVASCULAR: Regular rate and rhythm without murmurs, rubs, or gallops. Peripheral pulses 2+ and equal bilaterally. + left CVA tenderness ABDOMINAL: Soft, tender left upper quadrant and left lower quadrant, nondistended, no hepatosplenomegaly. Normoactive BS. MUSCULOSKELETAL: Moves all extremities. Strength/ROM intact without gross deformities. SKIN: Warm, dry, normal color. No rashes. NEURO: A&O X3. Speech clear. Cranial nerves II-XII intact. No ataxic movements. PSYCHIATRIC: Appropriate mood and affect. Normal interaction. Course Vital Signs Vital signs: Vital Signs Temperature 36.6 C 01/17/25 13:06 Pulse Rate 98 01/17/25 13:06 Respiratory Rate 16 01/17/25 13:06 Blood Pressure 132/85 01/17/25 13:06 Pulse Oximetry 100 01/17/25 13:06 Oxygen Delivery Room Air 01/17/25 13:06 Temperature 36.6 C 01/17/25 13:06 Pulse Rate 84 01/17/25 16:39 Respiratory Rate 20 01/17/25 16:39 Blood Pressure 129/83 01/17/25 16:39 Pulse Oximetry 99 01/17/25 16:39 Oxygen Delivery Room Air 01/17/25 13:06 MDM - Abdominal Pain MDM Narrative Medical decision making narrative: Patient is a 39-year-old female presents to the ER with left upper quadrant abdominal pain. She reports the pain started approximately 12 days ago. She reports she recently started a new medication to treat her migraines called Hector. Patient reports she noticed the symptoms worsening after she took the medication 12 days ago and again when she took the medication 3 days ago. She endorses back pain and increased urinary frequency. Patient denies any fevers, chest pain, shortness of breath. Her last bowel movement was this morning and it was normal for her. Patient endorses a history of a hysterectomy, kidney stones, peptic ulcers, and migraines. Labs Ordered: CBC, CMP, UA, PTT, INR Imaging Ordered: CT abdomen pelvis Medications Ordered: Results: Pt's CT scan indicates Borderline enlargement of the liver. Nonobstructing left renal calculi Irregular 12 x 17 mm focus of decreased attenuation along the posterior wall of the distal stomach for which nonemergent follow-up with direct visualization is recommended. Two small involuting cysts within the left ovary. Diagnosis: peptic ulcer Consults: GI (outpatient) Patient Education/Shared MDM: Results of lab work and imaging shared with patient. She endorses mild improvement of symptoms following medication administration. Patient strongly advised to follow-up with Gastroenterology as soon as possible. She will be discharged home with a prescription for Prilosec, Pepcid, and Carafate. Strict return precautions provided. Patient verbalized understanding and is in agreement with plan. Vital signs stable at time of discharge. All questions answered. Differential Diagnosis Differential diagnosis: Likely abdominal pain, calculus of kidney, diverticulitis, gastroenteritis and small bowel obstruction Lab Data Attestation: I reviewed the patient's lab results. 01/17/25 13:17 01/17/25 13:17 Labs: Lab Results 01/17/25 01/17/25 Range/Units 13:16 13:17 WBC 7.0 (4.5-10.0) K/mm3 RBC 5.30 (4.2-5.4) M/mm3 Hgb 15.0 (12.0-15.0) g/dL Hct 45.5 (37.0-47.0) % MCV 85.8 (80-100) fl MCH 28.3 (26-34) pg MCHC 33.0 (32-36) g/dl RDW 12.2 (11.5-14.5) % Plt Count 259 (150-375) k/mm3 MPV 10.3 (7.4-10.4) fl Immature Gran % (Auto) 0.4 (0-0.5) % Neut % (Auto) 74.5 H (45.5-73.1) % Lymph % (Auto) 18.2 L (18.3-44.2) % [place] % (Auto) 5.8 (2.6-8.5) % Eos % (Auto) 0.7 (0-4.4) % Baso % (Auto) 0.4 (0.2-1.2) % Lymph # (Auto) 1.28 (0.9-3.2) K/mm3 [place] # (Auto) 0.4 (0.1-0.6) K/mm3 Eos # (Auto) 0.1 (0-0.3) K/mm3 Baso # (Auto) 0.0 (0.0-0.1) K/mm3 Abs Immat Gran (auto) 0.03 (0.00-0.031) K/mm3 Absolute Neuts (auto) 5.2 (1.3-6.7) K/mm3 Absolute Nucleated RBC 0.000 (0.0-0.012) K/mm3 Nucleated RBC % 0.0 (0.0-0.2) % PT 13.4 (11.1-14.7) Seconds INR 1.0 APTT 32.4 (22.3-36.8) Seconds Sodium 136 L (137-145) mmol/L Potassium 3.9 (3.4-5.0) mmol/L Chloride 102 (98-107) mmol/L Carbon Dioxide 24 (22-30) mmol/L Anion Gap 10 (4-12) mmol/L BUN 13 (7-17) mg/dL Creatinine 0.76 (0.7-1.0) mg/dL Estim Creat Clear Calc 92 ml/min Estimated GFR > 60 (59 - ) Glucose 107 (65-110) mg/dL Calcium 9.5 (8.4-10.2) mg/dL Total Bilirubin 0.4 (0.2-1.3) mg/dL AST 29 (14-36) U/L ALT 26 (6-35) U/L Alkaline Phosphatase 67 (38-126) U/L Total Protein 7.4 (6.3-8.2) g/dL Albumin 4.4 (3.5-5.1) g/dL Lipase 260 (23-300) U/L Urine Color Yellow (Yellow) Urine Appearance Clear (Clear) Urine pH 7.0 (5.0-9.0) Ur Specific [place] 1.018 (1.001-1.035) Urine Protein Trace (Negative) mg/dL Urine Glucose (UA) Negative (Negative) mg/dL Urine Ketones Negative (Negative) mg/dL Ur Blood (Man) Negative (Negative) Urine Nitrate Negative (Negative) Urine Bilirubin Negative (Negative) Urine Urobilinogen 1.0 (<2.0) mg/dL Leukocyte Esterase Rfl Negative (Negative) KELI/UL Urine RBC 3-5 H (0-2) /hpf Urine WBC 0-5 (0-3) /hpf Ur Squamous Epith Cells Occasional (Few) /hpf Urine Bacteria None seen /hpf Urine Casts 0-2 Imaging Data Attestation: I personally reviewed and interpreted this imaging study as follows: Radiologist's impression: ITS Impressions Abdomen/Pelvis CT 01/17/25 15:39 IMPRESSION: Borderline enlargement of the liver. Nonobstructing left renal calculi Irregular 12 x 17 mm focus of decreased attenuation along the posterior wall of the distal stomach for which nonemergent follow-up with direct visualization is recommended. Two small involuting cysts within the left ovary. Abdomen Ultrasound 01/17/25 18:09 IMPRESSION: Limited evaluation of the pancreas secondary to overlying bowel gas Borderline enlargement of a fatty liver. Phasic flow within the portal vein. No stones within the gallbladder Discharge Plan Discharge Clinical Impression: Left upper quadrant abdominal pain, Peptic ulcer disease Patient Disposition: Home Condition: Stable Instructions: Antibiotic Form, Peptic Ulcer (ED), Diet for Stomach Ulcers and Gastritis (ED) Additional Instructions: Please return to the ER with any worsening symptoms. Follow-up with Gastroenterology as soon as possible. Take all medications as prescribed, including regularly scheduled medications. Please space out your GI medications. Take your Protonix first, then take your Carafate 1/2 hour later. T dimitry sucralfate at least one hour before or two hours after a meal to allow it to bind to and protect the ulcer.? Lastly, take your Pepcid approximately one hour after your Carafate. Patient Language: Frisian Prescriptions: New sucralfate 100 mg/mL suspension 2 g PO BID Qty: 400 0RF famotidine [Pepcid] 40 mg tablet 40 mg PO BID Qty: 60 0RF pantoprazole 40 mg tablet,delayed release (DR/EC) 40 mg PO HS 56 Days Qty: 56 0RF No Action Emgality Pen 120 mg/mL pen injector 120 mg SUBCUT MONTHLY cholecalciferol (vitamin D3) 50 mcg (2,000 unit) capsule 50 mcg PO DAILY riboflavin (vitamin B2) 25 mg tablet 25 mg PO DAILY nv-2-uvu-epa-fish oil-vit D3 360 mg- 12.5 mcg capsule 360 cap PO DAILY multivitamin [Daily Multi-Vitamin] Tablet 1 tablet PO DAILY bupropion HCl [Wellbutrin XL] 150 mg tablet extended release 24 hr 150 mg PO QAM Qty: 90 2RF Follow-up/Referrals: Grant Mobley MD [Physician] - (gastroenterology ) UNKNOWN,DOCTOR [Primary Care Provider] - Stand Alone Forms: Work/School Release IP Time of Disposition: 18:32
[2025-01-17 15:12] LABS: INR 1.0; Prothrombin Time 13.4 Seconds (11.1-14.7)
[2025-01-17 15:13] LABS: Partial Thromboplastin Time 32.4 Seconds (22.3-36.8)
[2025-01-17] MEDS: MORPHINE SULFATE (*CRX) 4 MG/ML INJ IV PUSH (16:28)
[2025-01-17] MEDS: KETOROLAC 15 MG/ML VIAL (*BKC) IV PUSH (16:32)
[2025-01-17 16:39] VITALS: BP 129/83; PULSE 84; RESP 20; O2SAT 99
[2025-01-17] MEDS: BELLADONNA ALK/PHENOB ELIX 10 ML, MAG HYDROX/ALUMINUM HYD/SIMETH 30 ML, LIDOCAINE 2% VI... PO (18:28)
[2025-01-17 18:30] VITALS: BP 118/83; PULSE 74; RESP 14; O2SAT 97
== END 2025-01-17 18:44 | disposition home or self-care (01) ==
PROVIDERS: Emergency Provider Registered Nurse
DX: K27.9 Peptic ulcer, site unspecified, unspecified as acute or chronic, without hemorrhage or perforation (principal); R10.12 Left upper quadrant pain; K58.9 Irritable bowel syndrome, unspecified; K21.9 Gastro-esophageal reflux disease without esophagitis; F41.9 Anxiety disorder, unspecified; Z87.442 Personal history of urinary calculi; Z90.710 Acquired absence of both cervix and uterus; N83.202 Unspecified ovarian cyst, left side
CPT/HCPCS: 36415; 74018; 74177; 76705; 80053; 81001; 81003; 83690; 85025; 85610; 85730; 96374; 96375; 99284; A9270; J1885; J2270; Q9967

== ENCOUNTER 2025-04-14 16:32 | Emergency (ER) | payer BC, SELFPAY ==
--- NOTE | ~2025-04-14 | XR_ITS ---
EXAM/PROCEDURE: [id number] HISTORY: posterior rib/scapula pain/sob COMPARISON: None available. TECHNIQUE: Left ribs FINDINGS: No displaced rib fracture. Lungs are clear. Heart shadow within normal limits. No pneumothorax or subphrenic free air seen. IMPRESSION: No displaced rib fractures seen. Reviewed, dictated and finalized at location A. ER INSULATION
--- NOTE | 2025-04-14 16:38 | ED_ITS ---
HPI - Back Pain/Injury General Chief Complaint: Back Pain/Injury Stated Complaint: BACK PAIN Time Seen by Provider: 04/14/25 16:38 Source: patient Mode of arrival: ambulatory Limitations: no limitations History of Present Illness HPI Narrative: Lo is a 40 year old female patient presenting to the clinic today with c/o left posterior rib/ back pain x 2-3 day. She reports pain is sharp/stabbing that comes and goes. Rates pain 10/10 intermittently. Has been taking ibuprofen and applying heat and ice. Denies any chest pain but reports some sob. She is not taking any OCP, no hx of cancer, no recent travel, she is a non- smoker, no blood clotting disorders. Related Data Home Medications ?Medication ?Instructions ?Recorded ?Confirmed ?Last Taken ?Type cholecalciferol (vitamin D3) 50 50 mcg PO DAILY 01/17/25 Unknown History mcg (2,000 unit) capsule multivitamin (Daily Multi-Vitamin 1 tablet PO DAILY 01/17/25 Unknown History tablet) omega-3 360 fm-cwy-yse-fish 360 cap PO DAILY 08/13/24 01/17/25 Unknown History oil-vitamin D3 12.5 mcg capsule riboflavin (vitamin B2) 25 mg 25 mg PO DAILY 08/13/24 01/17/25 Unknown History tablet galcanezumab-gnlm 120 mg/mL 120 mg subcut MONTHLY 01/0701/17/25 Unknown History subcutaneous pen injector (Emgality Pen) Allergies Allergy/AdvReac Type Severity Reaction Status Date / Time amoxicillin Allergy Unknown Unknown Verified 01/17/25 12:00 cefaclor Allergy Unknown Unknown Verified 01/17/25 12:00 Penicillins Allergy Unknown Unknown Verified 01/17/25 12:00 Review of Systems Review of Systems: Pertinent positives per HPI. Patient denies any fever, chills, rash, headache, visual changes, dizziness, cough, sore throat, chest pain, palpitations, nausea, vomiting, diarrhea, constipation, abdominal pain, or any urinary issues. [facility] Past Medical History Medical History Stomach ulcer IBS (irritable bowel syndrome) GERD (gastroesophageal reflux disease) Anxiety Surgical History Surgical History History of surgery on arm L nerve surgery and a broken arm History of tonsillectomy H/O shoulder surgery [place] teeth extracted H/O tubal ligation Hx of abdominal hysterectomy R Ovary Removed Hx of dilation and curettage History of endometrial ablation Hx of section History of colposcopy Hx of appendectomy Family History Family History Father Depression Hypertension Cerebrovascular accident Family history of kidney disease Diabetes mellitus Heart disease Mother Depression Cervical cancer Sibling Thyroid disease Grandparent Depression Breast cancer Other Family history of malignant neoplasm of breast in first degree relative Social History Social History Second hand tobacco smoke exposure: No Alcohol intake: current Substance use: never Comments At the time of my signature, I reviewed and agree with the nursing past medical, surgical, social, and family history. There is no relevant family history pertinent to the patient complaint. Exam Narrative: General: Well-developed, well nourished, in no apparent distress Head: Normocephalic, atraumatic. Cardio: Regular rate and rhythm, s1 and s2 normal, no murmur appreciated. Resp: Clear to auscultation bilaterally, no rhonchi, rales, wheezing or rubs. Musculoskeletal: No deformity, non-tender to palpation, grossly normal range of motion, muscle strength strong and equal in BLE. SLT negative, patellar reflexes 2/4 bilaterally, negative foot drop, normal gait and station Course Course Emergency Course: Portions of this record may have been created with voice recognition software. Level of Care: Express Care Visit Vital Signs Vital signs: Vital Signs Temperature 36.7 C 04/14/25 16:40 Pulse Rate 94 04/14/25 16:40 Respiratory Rate 16 04/14/25 16:40 Blood Pressure 146/83 H 04/14/25 16:40 Pulse Oximetry 100 04/14/25 16:40 Oxygen Delivery Room Air 04/14/25 16:40 Temperature 36.7 C 04/14/25 16:40 Pulse Rate 94 04/14/25 16:40 Respiratory Rate 16 04/14/25 16:40 Blood Pressure 146/83 H 04/14/25 16:40 Pulse Oximetry 100 04/14/25 16:40 Oxygen Delivery Room Air 04/14/25 16:40 Vital signs reviewed MDM - Back Pain/Injury MDM Narrative Medical decision making narrative: At the time of visit patient is resting comfortably on the exam table. Patient appears to be nontoxic. C/o left posterior rib/ back pain x 2-3 day. She reports pain is sharp/stabbing that comes and goes. Rates pain 10/10 intermittently. Has been taking ibuprofen and applying heat and ice. Denies any chest pain but reports some sob due to pain with inspiration. She is not taking any OCP, no hx of cancer, no recent travel, she is a non-smoker, no blood clotting disorders. No leg swelling. Diagnostics: X-ray of the left ribs with PA chest ordered and was negative for any sign of pneumo, pneumonia, or rib fractures/displacement. Plan: I suspect patient has scapula pain/trapezius muscle strain. Prescription for Medrol Dosepak and cyclobenzaprine was sent to the pharmacy. Sedation precautions were reviewed. Wells criteria for PE is 0 points. Supportive measures were discussed with the patient and they voiced understanding discharge instructions and agrees to treatment plan. Return precautions reviewed Wells criteria for PE: 0.0?points Low risk group: 1.3% chance of PE in an ED population. Another study assigned scores <= as ?PE Unlikely? and had a 3% incidence of PE. Differential Diagnosis Differential diagnosis: Likely lumbar radiculopathy, sciatica, strain of lumbar region, pyelonephritis, thoracic back pain, AAA, discitis and other (muscle strain, scapula pain) Imaging Data Radiologist's impression: ITS Impressions Ribs w/Chest X-Ray 04/14/25 16:59 IMPRESSION: No displaced rib fractures seen. Discharge Plan Discharge Clinical Impression: Pain of left scapula Strain of left trapezius muscle Qualifiers: Encounter type: initial encounter Qualified Code(s): S46.812A - Strain of other muscles, fascia and tendons at shoulder and upper arm level, left arm, initial encounter Patient Disposition: Home Condition: Stable Instructions: Antibiotic Form, Musculoskeletal Pain (ED) Additional Instructions: Take any prescription medication only as prescribed-Medrol Dosepak and cyclobenzaprine Be mindful of sedation precautions given to you if taking a muscle relaxer. May use heat or ice to the affected area Consider massage or chiropractor adjustment if this was discussed with provider May use blue emu, lidocaine patches, or asper cream to affected area- do not apply heat or ice directly over cream- can cause burn. Complete appropriate back stretching exercises. Follow up with your PCP in 3-5 days if symptom persist. Patient Language: Salvadorean Prescriptions: New cyclobenzaprine 10 mg tablet 10 mg PO Q8H PRN (Reason: muscle spasm) 7 Days Qty: 21 0RF methylprednisolone [Medrol (Brad)] 4 mg tablets,dose pack See Rx Instructions PO .COMPLEX Qty: 21 0RF Rx Instructions: orally per package directions No Action Emgality Pen 120 mg/mL pen injector 120 mg SUBCUT MONTHLY cholecalciferol (vitamin D3) 50 mcg (2,000 unit) capsule 50 mcg PO DAILY riboflavin (vitamin B2) 25 mg tablet 25 mg PO DAILY ty-[id number]-[id number]-epa-fish oil-vit D3 360 mg- 12.5 mcg capsule 360 cap PO DAILY multivitamin [Daily Multi-Vitamin] Tablet 1 tablet PO DAILY sucralfate 100 mg/mL suspension 2 g PO BID Qty: 400 0RF famotidine [Pepcid] 40 mg tablet 40 mg PO BID Qty: 60 0RF pantoprazole 40 mg tablet,delayed release (DR/EC) 40 mg PO HS 56 Days Qty: 56 0RF bupropion HCl [Wellbutrin XL] 150 mg tablet extended release 24 hr 150 mg PO QAM Qty: 90 2RF Follow-up/Referrals: Perico,Lucille [Other] Time of Disposition: 17:16 Quality NIHSS Nursing Documentation ED NIHSS nursing documentation: reviewed/agree
[2025-04-14 16:40] VITALS: BP 146/83; PULSE 94; RESP 16; TEMP 36.7; O2SAT 100
== END 2025-04-14 17:24 | disposition home or self-care (01) ==
PROVIDERS: Emergency Provider Nurse Practitioner Family
DX: S46.812A Strain of other muscles, fascia and tendons at shoulder and upper arm level, left arm, initial encounter (principal); X58.XXXA Exposure to other specified factors, initial encounter
CPT/HCPCS: 71101; 99213; G0463